=== PATIENT | male | born 1935 | race Caucasian/White ===

== ENCOUNTER 2017-10-05 17:09 | Inpatient (IN) | payer MEDICARE, OTHER ==
--- NOTE | 2017-10-05 17:48 | EDM.PDOC ---
<Kendell Gonzalez - Last Filed: 10/05/17 21:25> ED HPI GENERAL MEDICAL PROBLEM - General Chief Complaint: Lower Extremity Injury/Pain Stated Complaint: MEDICAL [facility] Time Seen by Provider: 10/05/17 17:45 - Related Data Allergies Allergy/AdvReac Type Severity Reaction Status Date / Time Sulfa (Sulfonamide Allergy Itching Verified 10/05/17 20:52 Antibiotics) Home Meds: Home Meds Aspirin 325 mg PO DAILY 10/05/17 [History] Cyanocobalamin (Vitamin B-12) [B-12] 1,000 mcg PO DAILY 10/05/17 [History] Dorzolamide HCl [Trusopt] 1 drop EYELF BID 10/05/17 [History] Ferrous Gluconate 324 mg PO DAILY 10/05/17 [History] Finasteride 5 mg PO DAILY 10/05/17 [History] Lovastatin 40 mg PO BEDTIME 10/05/17 [History] Saw [place] 1,000 mg PO BID 10/05/17 [History] Terazosin [Hytrin] 5 mg PO BEDTIME 10/05/17 [History] Timolol Maleate [Timoptic 0.5% Ophth Soln] 1 drop EYEBOTH ACBREAKFAST 10/05/17 [ History] amLODIPine Besylate [Amlodipine Besylate] 10 mg PO DAILY 10/05/17 [History] guaiFENesin [Expectorant] 200 mg PO ASDIRECTED 10/05/17 [History] Brimonidine [Alphagan P 0.15% Ophth Soln] 1 drop EYELF BID 10/06/17 [History] Latanoprost [Xalatan 0.005% Ophth Soln] 1 drop EYEBOTH BEDTIME 10/06/17 [History ] Propylene Glycol/Peg 400 [Systane Ultra 0.4-0.3% Eye Drp] 1 drop EYEBOTH TID PRN 10/06/17 [History] Acetaminophen/oxyCODONE [Percocet 325-5 MG] 1 - 2 tab PO Q4H PRN #40 tablet [Rx] Aspirin [Ecotrin] 325 mg PO DAILY #30 tab.ec 10/08/17 [Rx] Polyethylene Glycol 3350 [Miralax] 17 gm PO DAILY #30 powd.pack 10/08/17 [Rx] Course - Vital Signs Last Recorded V/S: Last Vital Signs Temp 37.3 C 10/08/17 10:00 Pulse 92 10/08/17 10:00 Resp 18 10/08/17 10:00 BP 151/69 H 10/08/17 10:00 Pulse Ox 94 L 10/08/17 10:00 - Orders/Labs/Meds Labs: Laboratory Tests 10/05/17 10/05/17 Range/Units 17:50 17:50 WBC 7.7 (4.5-11.0) K/uL RBC 4.61 (4.30-5.90) M/uL Hgb 13.4 (12.0-15.0) g/dL Hct 40.8 (40.0-54.0) % MCV 89 (80-98) fL MCH 29 (27-31) pg MCHC 33 (32-36) % Plt Count 224 (150-400) K/uL Neut % (Auto) 71 H (36-66) % Lymph % (Auto) 18 L (24-44) % [place] % (Auto) 9 H (2-6) % Eos % (Auto) 2 (2-4) % Baso % (Auto) 1 (0-1) % Sodium 138 L (140-148) mmol/L Potassium 3.9 (3.6-5.2) mmol/L Chloride 106 (100-108) mmol/L Carbon Dioxide 25 (21-32) mmol/L Anion Gap 10.9 (5.0-14.0) mmol/L BUN 23 H (7-18) mg/dL Creatinine 1.4 H (0.8-1.3) mg/dL Est Cr Clr Drug Dosing 39.36 mL/min Estimated GFR (MDRD) 49 L (>60) Glucose 123 H (74-106) mg/dL Calcium 8.6 (8.5-10.1) mg/dL Total Bilirubin 0.3 (0.2-1.0) mg/dL AST 19 (15-37) U/L ALT 19 (12-78) U/L Alkaline Phosphatase 68 (46-116) U/L Total Protein 6.7 (6.4-8.2) g/dL Albumin 3.4 (3.4-5.0) g/dL Globulin 3.3 (2.3-3.5) g/dL Albumin/Globulin Ratio 1.0 L (1.2-2.2) Meds: Medications Discontinued Medications Generic Name Dose Route Start Last Admin Trade Name [place] PRN Reason Stop Dose Admin Acetaminophen 650 mg 10/05/17 20:49 Tylenol PO Q4H PRN Pain (Mild 1-3)/fever Al Hydroxide/Mg Hydroxide 30 ml 10/06/17 13:37 Mag-Al Plus PO Q4H PRN Constipation Amlodipine Besylate 10 mg 10/06/17 09:00 10/08/17 08:13 Norvasc PO 10 mg DAILY ANANTH Administration Ampicillin Sodium/Sulbactam Sodium Confirm 10/06/17 13:20 Unasyn Administered 10/06/17 13:21 Dose 3 gm .ROUTE .STK-MED ONE Aspirin 325 mg 10/07/17 09:00 10/08/17 08:13 Ecotrin PO 325 mg DAILY ANANTH Administration Bisacodyl 10 mg 10/07/17 09:00 10/08/17 08:13 Dulcolax PO 10 mg DAILY [facility] Administration Brimonidine Tartrate 0 ml 10/06/17 21:00 10/08/17 08:11 Alphagan P 0.15% Ophth Soln EYELF Not Given BID [facility] Ropivacaine 49.25 ml/ 0 ml 10/06/17 14:00 10/06/17 13:17 Ketorolac Tromethamine 30 mg/ INJECT 10/06/17 14:01 100 ml Epinephrine HCl 0.5 mg/ ONETIME ONE Administration Clonidine HCl 80 mcg/ Sodium Chloride 48.45 ml Dexamethasone Confirm 10/06/17 13:11 Dexamethasone Administered 10/06/17 13:12 Dose 4 mg .ROUTE .STK-MED ONE Diphenhydramine HCl 25 mg 10/06/17 13:37 Benadryl IVPUSH Q4H PRN Itching Docusate Sodium 100 mg 10/06/17 21:00 10/08/17 08:13 Colace PO 100 mg BID [facility] Administration Dorzolamide HCl 0 ml 10/05/17 21:00 10/08/17 08:12 Trusopt 2% Ophth Soln EYELF Not Given BID [facility] Fentanyl Confirm 10/06/17 11:33 Sublimaze Administered 10/06/17 11:34 Dose 100 mcg .ROUTE .STK-MED ONE Ferrous Sulfate 325 mg 02/21/18 09:00 10/08/17 08:13 Ferrous Sulfate PO 325 mg DAILY ANANTH Administration Finasteride 5 mg 10/06/17 09:00 Proscar PO DAILY ANANTH Finasteride 5 mg 10/05/17 23:00 10/05/17 23:05 Proscar PO 10/05/17 23:01 5 mg ONETIME ONE Administration Finasteride 5 mg 10/06/17 21:00 10/07/17 20:13 Proscar PO 5 mg BEDTIME ANANTH Administration Hydromorphone HCl 0.5 mg 10/05/17 18:02 10/05/17 18:06 Dilaudid IVPUSH 10/05/17 18:03 0.5 mg ONETIME ONE Administration Hydromorphone HCl Confirm 10/05/17 18:03 10/05/17 18:06 Dilaudid Administered 10/05/17 18:04 Not Given Dose 0.5 mg .ROUTE .STK-MED ONE Hydromorphone HCl 0.5 mg 10/05/17 20:49 10/06/17 05:50 Dilaudid IVPUSH 0.5 mg Q2H PRN Administration Pain Hydromorphone HCl 1 mg 10/06/17 07:29 10/06/17 10:04 Dilaudid IVPUSH 1 mg Q1H PRN Administration Pain Sodium Chloride 1,000 mls @ 125 mls/hr 10/05/17 20:49 10/06/17 23:46 Normal Saline IV 125 mls/hr ASDIRECTED ANANTH Administration Clindamycin Phosphate 600 mg/ 54 mls @ 100 mls/hr 10/06/17 10:00 10/06/17 11: 53 Sodium Chloride IV 10/07/17 02:33 100 mls/hr Q8H ANANTH Administration Lactated Ringer's Confirm 10/06/17 13:08 Ringers, Lactated Administered 10/06/17 13:09 Dose 1,000 mls @ as directed .ROUTE .STK-MED ONE Acetaminophen 1,000 mg/ Premix 100 mls @ 400 mls/hr 10/06/17 14:00 10/06/17 14:08 IV 10/06/17 14:14 400 mls/hr NOW ONE Administration Clindamycin Phosphate 600 mg/ 54 mls @ 100 mls/hr 10/06/17 18:00 10/07/17 05: 30 Sodium Chloride IV 10/07/17 06:33 100 mls/hr Q6H ANANTH Administration Ketorolac Tromethamine 15 mg 10/06/17 13:37 10/06/17 20:04 Toradol IVPUSH 10/11/17 13:37 15 mg Q8H PRN Administration Pain Latanoprost 0 ml 10/06/17 21:00 10/07/17 20:03 Xalatan 0.005% Ophth Soln EYEBOTH 1 drop BEDTIME ANANTH Administration Lidocaine HCl Confirm 10/05/17 19:06 10/05/17 19:22 Xylocaine 2% Jelly Administered 10/05/17 19:07 Not Given Dose 10 ml .ROUTE .STK-MED ONE Lidocaine HCl 10 ml 10/05/17 19:22 10/05/17 19:23 Xylocaine 2% Jelly MUCMEM 10/05/17 19:23 10 ml ONETIME ONE Administration Lovastatin 40 mg 10/05/17 21:00 10/07/17 20:11 Mevacor PO 40 mg BEDTIME ANANTH Administration Magnesium Hydroxide 30 ml 10/05/17 20:49 Milk Of Magnesia PO Q12H PRN Constipation Magnesium Hydroxide 30 ml 10/06/17 21:00 10/08/17 08:13 Milk Of Magnesia PO 30 ml BID ANANTH Administration Midazolam HCl Confirm 10/06/17 11:33 Versed 1 Mg/Ml Administered 10/06/17 11:34 Dose 2 mg .ROUTE .STK-MED ONE Morphine Sulfate 2 mg 10/06/17 13:37 Morphine IVPUSH Q2H PRN Pain Naloxone HCl 0.1 mg 10/06/17 13:37 Narcan IVPUSH ONETIME PRN Oversedation Ondansetron HCl 4 mg 10/05/17 20:49 Zofran IV Q4H PRN Nausea/Vomiting Ondansetron HCl 8 mg 10/06/17 13:37 Zofran IVPUSH Q4H PRN Nausea/Vomiting Oxycodone HCl 5 mg 10/05/17 20:49 Oxycodone PO Q4H PRN Pain (moderate 4-6) Oxycodone HCl 10 mg 10/06/17 13:37 10/07/17 11:11 Oxycodone PO 10/07/17 13:37 10 mg Q4H PRN Administration Pain Oxycodone/Acetaminophen 2 tab 10/07/17 13:37 10/08/17 11:14 Percocet 325-5 Mg PO 2 tab Q4H PRN Administration Pain Polyethylene Glycol 17 gm 10/05/17 20:49 Miralax PO DAILY PRN Constipation Propofol Confirm 10/06/17 11:33 Diprivan 20 Ml Administered 10/06/17 11:34 Dose 200 mg .ROUTE .STK-MED ONE Senna 8.6 mg 10/06/17 21:00 10/08/17 08:13 Senna PO 8.6 mg BID ANANTH Administration Senna/Docusate Sodium 1 tab 10/05/17 20:49 Senna Plus PO BID PRN Constipation Sodium Chloride 10 ml 10/05/17 20:49 Saline Flush FLUSH ASDIRECTED PRN Keep Vein Open Sodium Chloride 10 ml 10/07/17 09:00 Saline Flush FLUSH DAILY ANANTH Terazosin HCl 5 mg 10/05/17 21:00 10/07/17 20:09 Hytrin PO 5 mg BEDTIME ANANTH Administration Timolol Maleate 0 ml 10/06/17 07:30 10/08/17 07:06 Timoptic 0.5% Ophth Soln EYEBOTH 1 drop ACBREAKFAST ANANTH Administration Tramadol HCl 100 mg 10/06/17 13:37 10/07/17 06:01 Ultram PO 50 mg Q6H PRN Administration Pain Zolpidem Tartrate 5 mg 10/06/17 13:37 Ambien PO BEDTIME PRN Sleep - Re-Assessments/Exams Free Text/Narrative Re-Assessment/Exam: 10/05/17 18:47 Transferred to my care from Dr. Cedillo Pending results of the x-rays X-ray right hip shows fracture of the neck of the femur X-ray of the elbow left is negative X-ray of the chest is negative, all by my interpretation Consult orthopedics Dr. Mackenzie Consult hospitalist for admission Departure - Departure Time of Disposition: 18:49 Disposition: Admitted As Inpatient 66 Condition: Good Clinical Impression: Fracture of femoral neck, right, closed Qualifiers: Encounter type: initial encounter Qualified Code(s): S72.001A - Fracture of unspecified part of neck of right femur, initial encounter for closed fracture - Discharge Information <Sherly Cedillo - Last Filed: 10/09/17 09:38> ED HPI GENERAL MEDICAL PROBLEM - General Source of Information: Reports: Patient History Limitations: Reports: No Limitations - History of Present Illness INITIAL COMMENTS - FREE TEXT/NARRATIVE: pt was chasing squirels on the deck. He lost his balsnce and landed on his rt hip. He also scraped his eleboW, worse on the left/ Onset: Today, Sudden Duration: Hour(s): Location: Reports: Upper Extremity, Left, Upper Extremity, Right, Lower Extremity, Right Associated Symptoms: Reports: No Other Symptoms Right Hip Pain Score (Numeric/FACES): 6 Past Medical History HEENT History: Reports: Cataract, Glaucoma Cardiovascular History: Reports: High Cholesterol, Hypertension Genitourinary History: Reports: Prostate Disorder - Past Surgical History HEENT Surgical History: Reports: Cataract Surgery Social & Family History - Tobacco Use Smoking Status *Q: Never Smoker - Caffeine Use Caffeine Use: Reports: Coffee - Recreational Drug Use Recreational Drug Use: No Review of Systems - Review of Systems Review Of Systems: See Below Constitutional: Reports: No Symptoms Eyes: Reports: No Symptoms Ears: Reports: No Symptoms Nose: Reports: No Symptoms Mouth/Throat: Reports: No Symptoms Respiratory: Reports: No Symptoms Cardiovascular: Reports: No Symptoms GI/Abdominal: Reports: No Symptoms Musculoskeletal: Reports: Other (pain in left hip and pelvis. He has scaped his elebows. ) ED EXAM, GENERAL - Physical Exam Exam: See Below Free Text/Narrative:: pt arrived after a fall on the deck. He has pain in his rt hip. He scraped both elebows. He has some external rotation of the rt leg. Exam Limited By: No Limitations General Appearance: Alert, Moderate Distress, Other (pupils are equal and reactive.) Ears: Normal TMs Nose: Normal Inspection Throat/Mouth: Normal Inspection Head: Atraumatic Neck: Normal Inspection Respiratory/Chest: No Respiratory Distress Cardiovascular: Regular Rate, Rhythm GI/Abdominal: Soft, Non-Tender (Male) Exam: Normal Inspection Rectal (Males) Exam: Deferred Back Exam: Normal Inspection Extremities: Other (left leg is externally rotated and shortened. He has scraped both of his elebows. He was not knocked out. ) Neurological: Alert, Oriented, Normal Cognition Psychiatric: Normal Affect Course - Orders/Labs/Meds Labs: Laboratory Tests 10/05/17 10/05/17 Range/Units 17:50 17:50 WBC 7.7 (4.5-11.0) K/uL RBC 4.61 (4.30-5.90) M/uL Hgb 13.4 (12.0-15.0) g/dL Hct 40.8 (40.0-54.0) % MCV 89 (80-98) fL MCH 29 (27-31) pg MCHC 33 (32-36) % Plt Count 224 (150-400) K/uL Neut % (Auto) 71 H (36-66) % Lymph % (Auto) 18 L (24-44) % [place] % (Auto) 9 H (2-6) % Eos % (Auto) 2 (2-4) % Baso % (Auto) 1 (0-1) % Sodium 138 L (140-148) mmol/L Potassium 3.9 (3.6-5.2) mmol/L Chloride 106 (100-108) mmol/L Carbon Dioxide 25 (21-32) mmol/L Anion Gap 10.9 (5.0-14.0) mmol/L BUN 23 H (7-18) mg/dL Creatinine 1.4 H (0.8-1.3) mg/dL Est Cr Clr Drug Dosing 39.36 mL/min Estimated GFR (MDRD) 49 L (>60) Glucose 123 H (74-106) mg/dL Calcium 8.6 (8.5-10.1) mg/dL Total Bilirubin 0.3 (0.2-1.0) mg/dL AST 19 (15-37) U/L ALT 19 (12-78) U/L Alkaline Phosphatase 68 (46-116) U/L Total Protein 6.7 (6.4-8.2) g/dL Albumin 3.4 (3.4-5.0) g/dL Globulin 3.3 (2.3-3.5) g/dL Albumin/Globulin Ratio 1.0 L (1.2-2.2) Meds: Medications Discontinued Medications Generic Name Dose Route Start Last Admin Trade Name Freq PRN Reason Stop Dose Admin Acetaminophen 650 mg 10/05/17 20:49 Tylenol PO Q4H PRN Pain (Mild 1-3)/fever Al Hydroxide/Mg Hydroxide 30 ml 02/21/18 13:37 Mag-Al Plus PO Q4H PRN Constipation Amlodipine Besylate 10 mg 10/06/17 09:00 10/08/17 08:13 Norvasc PO 10 mg DAILY ANANTH Administration Ampicillin Sodium/Sulbactam Sodium Confirm 10/06/17 13:20 Unasyn Administered 10/06/17 13:21 Dose 3 gm .ROUTE .STK-MED ONE Aspirin 325 mg 10/07/17 09:00 10/08/17 08:13 Ecotrin PO 325 mg DAILY ANANTH Administration Bisacodyl 10 mg 10/07/17 09:00 10/08/17 08:13 Dulcolax PO 10 mg DAILY [facility] Administration Brimonidine Tartrate 0 ml 10/06/17 21:00 10/08/17 08:11 Alphagan P 0.15% Ophth Soln EYELF Not Given BID [facility] Ropivacaine 49.25 ml/ 0 ml 10/06/17 14:00 10/06/17 13:17 Ketorolac Tromethamine 30 mg/ INJECT 10/06/17 14:01 100 ml Epinephrine HCl 0.5 mg/ ONETIME ONE Administration Clonidine HCl 80 mcg/ Sodium Chloride 48.45 ml Dexamethasone Confirm 10/06/17 13:11 Dexamethasone Administered 10/06/17 13:12 Dose 4 mg .ROUTE .STK-MED ONE Diphenhydramine HCl 25 mg 10/06/17 13:37 Benadryl IVPUSH Q4H PRN Itching Docusate Sodium 100 mg 10/06/17 21:00 10/08/17 08:13 Colace PO 100 mg BID [facility] Administration Dorzolamide HCl 0 ml 10/05/17 21:00 10/08/17 08:12 Trusopt 2% Ophth Soln EYELF Not Given BID [facility] Fentanyl Confirm 10/06/17 11:33 Sublimaze Administered 10/06/17 11:34 Dose 100 mcg .ROUTE .STK-MED ONE Ferrous Sulfate 325 mg 10/06/17 09:00 10/08/17 08:13 Ferrous Sulfate PO 325 mg DAILY [facility] Administration Finasteride 5 mg 10/06/17 09:00 Proscar PO DAILY [facility] Finasteride 5 mg 10/05/17 23:00 10/05/17 23:05 Proscar PO 10/05/17 23:01 5 mg ONETIME ONE Administration Finasteride 5 mg 10/06/17 21:00 10/07/17 20:13 Proscar PO 5 mg BEDTIME ANANTH Administration Hydromorphone HCl 0.5 mg 10/05/17 18:02 10/05/17 18:06 Dilaudid IVPUSH 10/05/17 18:03 0.5 mg ONETIME ONE Administration Hydromorphone HCl Confirm 10/05/17 18:03 10/05/17 18:06 Dilaudid Administered 10/05/17 18:04 Not Given Dose 0.5 mg .ROUTE .STK-MED ONE Hydromorphone HCl 0.5 mg 10/05/17 20:49 10/06/17 05:50 Dilaudid IVPUSH 0.5 mg Q2H PRN Administration Pain Hydromorphone HCl 1 mg 10/06/17 07:29 10/06/17 10:04 Dilaudid IVPUSH 1 mg Q1H PRN Administration Pain Sodium Chloride 1,000 mls @ 125 mls/hr 10/05/17 20:49 10/06/17 23:46 Normal Saline IV 125 mls/hr ASDIRECTED ANANTH Administration Clindamycin Phosphate 600 mg/ 54 mls @ 100 mls/hr 10/06/17 10:00 10/06/17 11: 53 Sodium Chloride IV 10/07/17 02:33 100 mls/hr Q8H ANANTH Administration Lactated Ringer's Confirm 10/06/17 13:08 Ringers, Lactated Administered 10/06/17 13:09 Dose 1,000 mls @ as directed .ROUTE .STK-MED ONE Acetaminophen 1,000 mg/ Premix 100 mls @ 400 mls/hr 10/06/17 14:00 10/06/17 14:08 IV 10/06/17 14:14 400 mls/hr NOW ONE Administration Clindamycin Phosphate 600 mg/ 54 mls @ 100 mls/hr 10/06/17 18:00 10/07/17 05: 30 Sodium Chloride IV 10/07/17 06:33 100 mls/hr Q6H ANANTH Administration Ketorolac Tromethamine 15 mg 10/06/17 13:37 10/06/17 20:04 Toradol IVPUSH 10/11/17 13:37 15 mg Q8H PRN Administration Pain Latanoprost 0 ml 10/06/17 21:00 10/07/17 20:03 Xalatan 0.005% Ophth Soln EYEBOTH 1 drop BEDTIME ANANTH Administration Lidocaine HCl Confirm 10/05/17 19:06 10/05/17 19:22 Xylocaine 2% Jelly Administered 10/05/17 19:07 Not Given Dose 10 ml .ROUTE .STK-MED ONE Lidocaine HCl 10 ml 10/05/17 19:22 10/05/17 19:23 Xylocaine 2% Jelly MUCMEM 10/05/17 19:23 10 ml ONETIME ONE Administration Lovastatin 40 mg 10/05/17 21:00 10/07/17 20:11 Mevacor PO 40 mg BEDTIME ANANTH Administration Magnesium Hydroxide 30 ml 10/05/17 20:49 Milk Of Magnesia PO Q12H PRN Constipation Magnesium Hydroxide 30 ml 10/06/17 21:00 10/08/17 08:13 Milk Of Magnesia PO 30 ml BID ANANTH Administration Midazolam HCl Confirm 10/06/17 11:33 Versed 1 Mg/Ml Administered 10/06/17 11:34 Dose 2 mg .ROUTE .STK-MED ONE Morphine Sulfate 2 mg 10/06/17 13:37 Morphine IVPUSH Q2H PRN Pain Naloxone HCl 0.1 mg 10/06/17 13:37 Narcan IVPUSH ONETIME PRN Oversedation Ondansetron HCl 4 mg 10/05/17 20:49 Zofran IV Q4H PRN Nausea/Vomiting Ondansetron HCl 8 mg 10/06/17 13:37 Zofran IVPUSH Q4H PRN Nausea/Vomiting Oxycodone HCl 5 mg 10/05/17 20:49 Oxycodone PO Q4H PRN Pain (moderate 4-6) Oxycodone HCl 10 mg 10/06/17 13:37 10/07/17 11:11 Oxycodone PO 10/07/17 13:37 10 mg Q4H PRN Administration Pain Oxycodone/Acetaminophen 2 tab 10/07/17 13:37 10/08/17 11:14 Percocet 325-5 Mg PO 2 tab Q4H PRN Administration Pain Polyethylene Glycol 17 gm 10/05/17 20:49 Miralax PO DAILY PRN Constipation Propofol Confirm 10/06/17 11:33 Diprivan 20 Ml Administered 10/06/17 11:34 Dose 200 mg .ROUTE .STK-MED ONE Senna 8.6 mg 10/06/17 21:00 10/08/17 08:13 Senna PO 8.6 mg BID ANANTH Administration Senna/Docusate Sodium 1 tab 10/05/17 20:49 Senna Plus PO BID PRN Constipation Sodium Chloride 10 ml 10/05/17 20:49 Saline Flush FLUSH ASDIRECTED PRN Keep Vein Open Sodium Chloride 10 ml 10/07/17 09:00 Saline Flush FLUSH DAILY ANANTH Terazosin HCl 5 mg 10/05/17 21:00 10/07/17 20:09 Hytrin PO 5 mg BEDTIME ANANTH Administration Timolol Maleate 0 ml 10/06/17 07:30 10/08/17 07:06 Timoptic 0.5% Ophth Soln EYEBOTH 1 drop ACBREAKFAST ANANTH Administration Tramadol HCl 100 mg 10/06/17 13:37 10/07/17 06:01 Ultram PO 50 mg Q6H PRN Administration Pain Zolpidem Tartrate 5 mg 10/06/17 13:37 Ambien PO BEDTIME PRN Sleep
[2017-10-05] MEDS ORDERED: HYDROmorphone 0.5 MG/0.5 ML Syringe IVPUSH ONE (18:02)
[2017-10-05] MEDS ORDERED: HYDROmorphone 0.5 MG/0.5 ML Syringe ONE (18:03)
[2017-10-05] MEDS ORDERED: Lidocaine 2% Jelly 10 ML Urojet ONE (19:06)
[2017-10-05] MEDS ORDERED: Lidocaine 2% Jelly 10 ML Urojet MUCMEM ONE (19:22)
--- NOTE | 2017-10-05 20:43 | PCM.HP ---
H&P History of Present Illness - General Date of Service: 10/05/17 Admit Problem/Dx: Admission Diagnosis/Problem Admission Diagnosis/Problem Fracture of hip Source of Information: Patient, Family, Provider, RN Notes Reviewed History Limitations: Reports: No Limitations - History of Present Illness Initial Comments - Free Text/Narative: Mr. Mathur is an 82-year-old gentleman who is admitted through the emergency department for further management of a right hip fracture. He slipped and fell on his deck today and noted immediate onset of pain in his right hip. On evaluation in the emergency department x-ray documents fracture of the right hip. He is otherwise fairly healthy, denies significant cardiac or respiratory disease. He's had no recent symptoms of chest pain or pressure, shortness of breath or neurologic symptoms. He himself has never had general anesthesia and denies any family history of adverse reaction to general anesthetic. He has had no personal history of deep vein thrombosis or pulmonary embolism. Right Hip Pain Score (Numeric/FACES): 6 - Related Data Allergies/Adverse Reactions: Allergies Allergy/AdvReac Type Severity Reaction Status Date / Time Sulfa (Sulfonamide Allergy Itching Verified 10/05/17 17:16 Antibiotics) Home Medications: Home Meds Aspirin 325 mg PO DAILY 10/05/17 [History] Cyanocobalamin (Vitamin B-12) [B-12] 1,000 mcg PO DAILY 10/05/17 [History] Dorzolamide HCl [Trusopt] 1 drop EYELF BID 10/05/17 [History] Ferrous Gluconate 324 mg PO DAILY 10/05/17 [History] Finasteride 5 mg PO DAILY 10/05/17 [History] Lovastatin 40 mg PO BEDTIME 10/05/17 [History] Saw [place] 1,000 mg PO BID 10/05/17 [History] Terazosin [Hytrin] 5 mg PO BEDTIME 10/05/17 [History] Timolol Maleate [Timoptic 0.5% Ophth Soln] 1 drop EYEBOTH ACBREAKFAST 10/05/17 [ History] amLODIPine Besylate [Amlodipine Besylate] 10 mg PO DAILY 10/05/17 [History] guaiFENesin [Expectorant] 200 mg PO ASDIRECTED 10/05/17 [History] Past Medical History HEENT History: Reports: Cataract, Glaucoma Cardiovascular History: Reports: High Cholesterol, Hypertension Genitourinary History: Reports: Prostate Disorder - Past Surgical History HEENT Surgical History: Reports: Cataract Surgery Social & Family History - Tobacco Use Smoking Status *Q: Never Smoker - Caffeine Use Caffeine Use: Reports: Coffee - Recreational Drug Use Recreational Drug Use: No H&P Review of Systems - Review of Systems: Review Of Systems: See Below General: Denies: Fever, Chills, Weakness, Diaphoresis, Decreased Appetite, Weight Loss HEENT: Reports: No Symptoms Pulmonary: Reports: No Symptoms Cardiovascular: Reports: No Symptoms Gastrointestinal: Reports: No Symptoms Genitourinary: Reports: No Symptoms Musculoskeletal: Reports: Joint Pain (Right hip) Skin: Reports: No Symptoms Psychiatric: Reports: No Symptoms Neurological: Reports: No Symptoms Hematologic/Lymphatic: Reports: No Symptoms Immunologic: Reports: No Symptoms Exam - Exam Exam: See Below - Vital Signs Vital Signs: Last Vital Signs Temp 97 F 10/05/17 17:17 Pulse 85 10/05/17 17:17 Resp 16 10/05/17 17:17 BP 143/87 H 10/05/17 17:17 Pulse Ox 96 10/05/17 17:17 Weight: 172 lb - Exam Quality Assessment: DVT Prophylaxis General: Alert, Oriented, Cooperative, Moderate Distress HEENT: Conjunctiva Clear, Hearing Intact, Mucosa Moist & [place], Normal Nasal Septum, Posterior Pharynx Clear, Pupils Equal Neck: Supple, Trachea Midline, +2 Carotid Pulse wo Bruit Lungs: Clear to Auscultation, Normal Respiratory Effort Cardiovascular: Regular Rate, Regular Rhythm, Normal S1, Normal S2. No: Systolic Murmur, Diastolic Murmur GI/Abdominal Exam: Soft, Non-Tender, No Organomegaly, No Distention Extremities: Non-Tender, No Pedal Edema, Other (Pain right hip) Skin: Warm, Dry, Intact Neurological: Cranial Nerves Intact, Strength Equal Bilateral, Normal Speech, Normal Tone, Sensation Intact. No: Focal Deficit Neuro Extensive - Mental Status: Alert, Oriented x3, Normal Mood/Affect, Normal Cognition, Memory Intact - Patient Data Result Diagrams: 10/05/17 17:50 10/05/17 17:50 *Q Meaningful Use (ADM) - VTE *Q VTE Criteria *Q: - VTE Risk Assess *Q Each Risk Factor Represents 1 Point: Obesity ( BMI > 25 kg/m2) Total Score 1 Point Risk Factors: 1 Each Risk Factor Represents 2 Points: None Total Score 2 Point Risk Factors: 0 Each Risk Factor Represents 3 Points: Age 75 Years or Greater Total Score 3 Point Risk Factors: 3 Each Risk Factor Represents 5 Points: Hip, Pelvis or Leg Fracture, Less than 1 month Total Score 5 Point Risk Factors: 5 Venous Thromboembolism Risk Factor Score *Q: 9 - Stroke *Q Stroke Criteria *Q: - AMI *Q AMI Criteria *Q: Problem List Initiated/Reviewed/Updated: Yes Orders Last 24hrs: Active Orders 24 hr Category Date Time Status Resuscitation Status Routine Resus Stat 10/05/17 19:58 Ordered Assessment/Plan Comment:: ASSESSMENT AND PLAN RIGHT HIP FRACTURE-occurred after he fell on his deck earlier today. -IV fluids for hydration -Nothing by mouth after midnight -Pain medication as needed -Consult Dr. Anam Goel for orthopedic evaluation in a.m. HYPERTENSION -Continue outpatient medical regimen BPH -Continue outpatient medications MAINTENANCE ISSUES -DVT prophylaxis; SCUDs -GI prophylaxis; not indicated -Brasher catheter; not indicated -Nutrition; regular diet, nothing by mouth after midnight -Nicotine dependence; not required CODE STATUS-full code ADMISSION STATUS-patient will be admitted to inpatient status, expect at least a 2 night hospital stay for evaluation and management of problems as outlined above. At the time of this admission I do not reasonably expected evaluation and management of this problem will require more than a 96 hour hospital stay. DISPOSITION-anticipate discharge to home after the hospital stay. PRIMARY CARE PROVIDER-he receives his health care through the [facility]
[2017-10-05] MEDS ORDERED: Magnesium Hydroxide 400 MG/5 ML Susp 30 ML Cup PO PRN (20:49)
[2017-10-05] MEDS ORDERED: Sodium Chloride 0.9% 10 ML Syringe FLUSH PRN (20:49)
[2017-10-05] MEDS ORDERED: oxyCODONE 5 MG Tab PO PRN (20:49)
[2017-10-05] MEDS ORDERED: Ondansetron 4 MG/2 ML SDV IV PRN (20:49)
[2017-10-05] MEDS ORDERED: Polyethylene Glycol 3350 Powder 17 GM Packet PO PRN (20:49)
[2017-10-05] MEDS ORDERED: Acetaminophen 325 MG Tab PO PRN (20:49)
[2017-10-05] MEDS: HYDROmorphone 0.5 MG/0.5 ML Syringe IVPUSH PRN ×2 (20:59→23:06)
[2017-10-05] MEDS: Sodium Chloride 0.9% 1,000 ML IV SCH (20:59)
[2017-10-05] MEDS: DORZOLAMIDE 2% EYELF SCH (22:04)
[2017-10-05] MEDS: Terazosin 5 MG Cap PO SCH (22:29)
[2017-10-05] MEDS ORDERED: Finasteride 5 MG Tab PO ONE (23:00)
[2017-10-06] MEDS: HYDROmorphone 0.5 MG/0.5 ML Syringe IVPUSH PRN ×2 (02:37→05:50)
[2017-10-06] MEDS: Sodium Chloride 0.9% 1,000 ML IV SCH ×2 (06:03→23:46)
[2017-10-06] MEDS: HYDROmorphone 1 MG/ML Syringe IVPUSH PRN ×2 (07:40→10:04)
[2017-10-06] MEDS: TIMOLOL MALEATE 0.5% EYEBOTH SCH (08:23)
[2017-10-06] MEDS ORDERED: Finasteride 5 MG Tab PO SCH (09:00)
--- NOTE | 2017-10-06 09:05 | CR ---
Chest 1V Frontal FINDINGS: There is elevation of the right hemidiaphragm. The heart and vascular structures are normal in appearance. No infiltrates or effusions are demonstrated. The skeletal structures are unremarkabl e. IMPRESSION: 1. No acute findings.
--- NOTE | 2017-10-06 09:06 | CR ---
Elbow 2V Lt HISTORY: Trauma FINDINGS: There is normal alignment. There is no evidence of fracture. No significant degenerative fi ndings are demonstrated. There is no joint effusion. The soft tissues appear unremarkable. IMPRESSION: Negative exam of the elbow.
--- NOTE | 2017-10-06 09:07 | CR ---
Pelvis right hip There is a displaced fracture through the midportion right femoral neck. The visualized right pelvis demonstrates no additional fractures. Impression: 1. Displaced femoral neck fracture.
--- NOTE | 2017-10-06 10:01 | PCM.PN ---
- General Info Date of Service: 10/06/17 Subjective Update: Mr. Mathur has remained stable since admission last night with a right hip fracture. Vital signs have remained within the desired range and he has been afebrile, pain control has been adequate. Plan is to proceed with surgical repair the fracture later this morning. - Review of Systems General: Denies: Fever, Chills Pulmonary: Reports: No Symptoms Cardiovascular: Reports: No Symptoms Gastrointestinal: Reports: No Symptoms Genitourinary: Reports: No Symptoms Musculoskeletal: Reports: Joint Pain (Right hip) - Patient Data Vitals - Most Recent: Last Vital Signs Temp 98.6 F 10/06/17 07:18 Pulse 100 10/06/17 07:18 Resp 16 10/06/17 07:18 BP 162/81 H 10/06/17 07:18 Pulse Ox 92 L 10/06/17 07:18 Weight - Most Recent: 194 lb 6.387 oz I&O - Last 24 Hours: Intake & Output 10/05/17 10/06/17 10/06/17 22:59 06:59 14:59 Intake Total 1211 Output Total 425 Balance 786 Lab Results Last 24 Hours: Laboratory Results - last 24 hr 10/05/17 10/06/17 10/06/17 Range/Units 22:01 05:11 05:11 WBC 10.6 (4.5-11.0) K/uL RBC 4.49 (4.30-5.90) M/uL Hgb 13.2 (12.0-15.0) g/dL Hct 40.0 (40.0-54.0) % MCV 89 (80-98) fL MCH 29 (27-31) pg MCHC 33 (32-36) % Plt Count 219 (150-400) K/uL Neut % (Auto) 84 H (36-66) % Lymph % (Auto) 8 L (24-44) % [place] % (Auto) 7 H (2-6) % Eos % (Auto) 0 L (2-4) % Baso % (Auto) 0 (0-1) % Sodium 140 (140-148) mmol/L Potassium 4.1 (3.6-5.2) mmol/L Chloride 108 (100-108) mmol/L Carbon Dioxide 22 (21-32) mmol/L Anion Gap 9.8 (5.0-14.0) mmol/L BUN 23 H (7-18) mg/dL Creatinine 1.3 (0.8-1.3) mg/dL Est Cr Clr Drug Dosing 42.38 mL/min Estimated GFR (MDRD) 53 L (>60) Glucose 129 H (74-106) mg/dL Calcium 8.4 L (8.5-10.1) mg/dL Urine Color Yellow Urine Appearance Slightly cloudy Urine pH 5.0 (4.5-8.0) Ur Specific [place] 1.020 (1.008-1.030) Urine Protein Negative (NEGATIVE) mg/dL Urine Glucose (UA) Normal (NEGATIVE) mg/dL Urine Ketones 15 H (NEGATIVE) mg/dL Urine Occult Blood Negative (NEGATIVE) Urine Nitrite Negative (NEGAITVE) Urine Bilirubin Small (NEGATIVE) Urine Urobilinogen Normal (NORMAL) mg/dL Ur Leukocyte Esterase Negative (NEGATIVE) Urine RBC 0-5 (0-5) Urine WBC 0-5 (0-5) Ur Epithelial Cells Rare Amorphous Sediment Moderate Urine Bacteria Not seen Urine Mucus Moderate Med Orders - Current: Current Medications Acetaminophen (Tylenol) 650 mg PO Q4H PRN PRN Reason: Pain (Mild 1-3)/fever Amlodipine Besylate (Norvasc) 10 mg PO DAILY [facility] Dorzolamide HCl (Trusopt 2% Ophth Soln) 0 ml EYELF BID [facility] Last Admin: 10/05/17 22:04 Dose: Not Given Ferrous Sulfate (Ferrous Sulfate) 325 mg PO DAILY [facility] Finasteride (Proscar) 5 mg PO BEDTIME [facility] Hydromorphone HCl (Dilaudid) 1 mg IVPUSH Q1H PRN PRN Reason: Pain Last Admin: 10/06/17 07:40 Dose: 1 mg Sodium Chloride (Normal Saline) 1,000 mls @ 125 mls/hr IV ASDIRECTED [facility] Last Admin: 10/06/17 06:03 Dose: 125 mls/hr Clindamycin Phosphate 600 mg/ (Sodium Chloride) 54 mls @ 100 mls/hr IV Q8H [facility] Stop: 10/07/17 02:33 Lovastatin (Mevacor) 40 mg PO BEDTIME [facility] Last Admin: 10/05/17 22:28 Dose: 40 mg Magnesium Hydroxide (Milk Of Magnesia) 30 ml PO Q12H PRN PRN Reason: Constipation Ondansetron HCl (Zofran) 4 mg IV Q4H PRN PRN Reason: Nausea/Vomiting Oxycodone HCl (Oxycodone) 5 mg PO Q4H PRN PRN Reason: Pain (moderate 4-6) Polyethylene Glycol (Miralax) 17 gm PO DAILY PRN PRN Reason: Constipation Senna/Docusate Sodium (Senna Plus) 1 tab PO BID PRN PRN Reason: Constipation Sodium Chloride (Saline Flush) 10 ml FLUSH ASDIRECTED PRN PRN Reason: Keep Vein Open Terazosin HCl (Hytrin) 5 mg PO BEDTIME [facility] Last Admin: 10/05/17 22:29 Dose: 5 mg Timolol Maleate (Timoptic 0.5% Ophth Soln) 0 ml EYEBOTH ACBREAKFAST [facility] Last Admin: 10/06/17 08:23 Dose: 1 drop Discontinued Medications Finasteride (Proscar) 5 mg PO DAILY [facility] Finasteride (Proscar) 5 mg PO ONETIME ONE Stop: 10/05/17 23:01 Last Admin: 10/05/17 23:05 Dose: 5 mg Hydromorphone HCl (Dilaudid) 0.5 mg IVPUSH ONETIME ONE Stop: 10/05/17 18:03 Last Admin: 10/05/17 18:06 Dose: 0.5 mg Hydromorphone HCl (Dilaudid) Confirm Administered Dose 0.5 mg .ROUTE .STK-MED ONE Stop: 10/05/17 18:04 Last Admin: 10/05/17 18:06 Dose: Not Given Hydromorphone HCl (Dilaudid) 0.5 mg IVPUSH Q2H PRN PRN Reason: Pain Last Admin: 10/06/17 05:50 Dose: 0.5 mg Lidocaine HCl (Xylocaine 2% Jelly) Confirm Administered Dose 10 ml .ROUTE .STK- MED ONE Stop: 10/05/17 19:07 Last Admin: 10/05/17 19:22 Dose: Not Given Lidocaine HCl (Xylocaine 2% Jelly) 10 ml MUCMEM ONETIME ONE Stop: 10/05/17 19:23 Last Admin: 10/05/17 19:23 Dose: 10 ml - Exam Quality Assessment: DVT Prophylaxis General: Alert, Oriented, Cooperative, Mild Distress Lungs: Clear to Auscultation, Normal Respiratory Effort Cardiovascular: Regular Rate, Regular Rhythm, No Murmurs GI/Abdominal Exam: Soft, Non-Tender, No Organomegaly, No Distention Extremities: No Pedal Edema, Normal Capillary Refill Skin: Warm, Dry, Intact - Problem List Review Problem List Initiated/Reviewed/Updated: Yes - My Orders Last 24 Hours: My Active Orders 10/05/17 19:58 Resuscitation Status Routine 10/05/17 20:49 Patient Status [ADT] Routine Ambulate [RC] QID Bedrest Bedside Commode [RC] ASDIRECTED Height and Weight [RC] DAILY Intake and Output [RC] QSHIFT Notify Provider Consults [RC] ASDIRECTED Notify Provider Vital Signs [RC] ASDIRECTED Oxygen Therapy [RC] PRN Peripheral IV Care [RC] Q12H Up With Assistance [RC] ASDIRECTED Up to Chair [RC] QID VTE/DVT Education [RC] Per Unit Routine Vital Signs [RC] Q4H Consult to Physician [CONS] Routine Acetaminophen [Tylenol] 650 mg PO Q4H PRN Docusate Sodium/Sennosides [Senna Plus] 1 tab PO BID PRN Magnesium Hydroxide [Milk of Magnesia] 30 ml PO Q12H PRN Ondansetron [Zofran] 4 mg IV Q4H PRN Polyethylene Glycol 3350 [MiraLAX] 17 gm PO DAILY PRN Sodium Chloride 0.9% [Normal Saline] 1,000 ml IV ASDIRECTED Sodium Chloride 0.9% [Saline Flush] 10 ml FLUSH ASDIRECTED PRN oxyCODONE 5 mg PO Q4H PRN Peripheral IV Insertion Adult [OM.PC] Routine Sequential Compression Device [OM.PC] Per Unit Routine VTE Pharmacological Contraindications [AST] Per Unit Routine 10/06/17 21:00 Finasteride [Proscar] 5 mg PO BEDTIME 10/06/17 Breakfast Nothing per Oral After Midnight Diet [DIET] - Plan Plan:: ASSESSMENT AND PLAN RIGHT HIP FRACTURE-stable through the night with plan for surgical repair the fracture later this morning -IV fluids for hydration -Nothing by mouth until after surgery -Pain medication as needed -Surgical repair fracture later this morning by Dr. Goel HYPERTENSION-blood pressures been stable we'll continue to monitor -Continue outpatient medical regimen BPH -Continue outpatient medications MAINTENANCE ISSUES -DVT prophylaxis; SCUDs -GI prophylaxis; not indicated -Brasher catheter; not indicated -Nutrition; regular diet, nothing by mouth after midnight -Nicotine dependence; not required CODE STATUS-full code ADMISSION STATUS-patient will be admitted to inpatient status, expect at least a 2 night hospital stay for evaluation and management of problems as outlined above. At the time of this admission I do not reasonably expected evaluation and management of this problem will require more than a 96 hour hospital stay. DISPOSITION-anticipate discharge to home after the hospital stay. PRIMARY CARE PROVIDER-he receives his health care through the [facility]
[2017-10-06] MEDS: amLODIPine 10 MG Tab PO SCH (10:02)
[2017-10-06] MEDS: Ferrous Sulfate 325 MG Tab PO SCH (10:04)
[2017-10-06] MEDS: DORZOLAMIDE 2% EYELF SCH ×2 (10:04→20:26)
[2017-10-06] MEDS ORDERED: Propofol 200 MG/20 ML SDV ONE (11:33)
[2017-10-06] MEDS ORDERED: fentaNYL 100 MCG/2 ML SDV ONE (11:33)
[2017-10-06] MEDS ORDERED: Midazolam 1 MG/ML 2 ML SDV ONE (11:33)
[2017-10-06] MEDS ORDERED: Lactated Ringers 1,000 ML ONE (13:08)
[2017-10-06] MEDS ORDERED: Dexamethasone 4 MG/ML SDV ONE (13:11)
[2017-10-06] MEDS ORDERED: Ampicillin/Sulbactam Na 3 GM Vial ONE (13:20)
[2017-10-06] MEDS ORDERED: traMADol 50 MG Tab PO PRN (13:37)
[2017-10-06] MEDS ORDERED: diphenhydrAMINE 50 MG/ML SDV IVPUSH PRN (13:37)
[2017-10-06] MEDS ORDERED: Zolpidem 5 MG Tab PO PRN (13:37)
[2017-10-06] MEDS ORDERED: Ketorolac 30 MG/ML SDV IVPUSH PRN (13:37)
[2017-10-06] MEDS ORDERED: Aluminum Hydroxide/Magnesium Hydroxide/Simethicone Susp 30 ML Cup PO PRN (13:37)
[2017-10-06] MEDS ORDERED: Ondansetron 4 MG/2 ML SDV IVPUSH PRN (13:37)
[2017-10-06] MEDS ORDERED: Morphine 2 MG/ML Syringe IVPUSH PRN (13:37)
[2017-10-06] MEDS ORDERED: Naloxone 0.4 MG/ML SDV IVPUSH PRN (13:37)
--- NOTE | 2017-10-06 13:54 | PCM.CONS ---
H&P History of Present Illness - General Date of Service: 10/06/17 Admit Problem/Dx: Admission Diagnosis/Problem Admission Diagnosis/Problem Fracture of hip Source of Information: Patient History Limitations: Reports: No Limitations - History of Present Illness Initial Comments - Free Text/Narative: I the pleasure seeing the patient for consult. Is a pleasant 82-year-old male who fell. He has an injury to his right hip. He has continuous pain in that area. Patient has had no prior injury to that area. He knows struck pain. He notes no other injury present. Right Hip Pain Score (Numeric/FACES): 7 - Related Data Allergies/Adverse Reactions: Allergies Allergy/AdvReac Type Severity Reaction Status Date / Time Sulfa (Sulfonamide Allergy Itching Verified 10/05/17 20:52 Antibiotics) Home Medications: Home Meds Aspirin 325 mg PO DAILY 10/05/17 [History] Cyanocobalamin (Vitamin B-12) [B-12] 1,000 mcg PO DAILY 10/05/17 [History] Dorzolamide HCl [Trusopt] 1 drop EYELF BID 10/05/17 [History] Ferrous Gluconate 324 mg PO DAILY 10/05/17 [History] Finasteride 5 mg PO DAILY 10/05/17 [History] Lovastatin 40 mg PO BEDTIME 10/05/17 [History] [place] 1,000 mg PO BID 10/05/17 [History] Terazosin [Hytrin] 5 mg PO BEDTIME 10/05/17 [History] Timolol Maleate [Timoptic 0.5% Ophth Soln] 1 drop EYEBOTH ACBREAKFAST 10/05/17 [ History] amLODIPine Besylate [Amlodipine Besylate] 10 mg PO DAILY 10/05/17 [History] guaiFENesin [Expectorant] 200 mg PO ASDIRECTED 10/05/17 [History] Brimonidine [Alphagan P 0.15% Ophth Soln] 1 drop EYELF BID 10/06/17 [History] Latanoprost [Xalatan 0.005% Ophth Soln] 1 drop EYEBOTH BEDTIME 10/06/17 [History ] Propylene Glycol/Peg 400 [Systane Ultra 0.4-0.3% Eye Drp] 1 drop EYEBOTH TID PRN 10/06/17 [History] Past Medical History HEENT History: Reports: Cataract, Glaucoma Cardiovascular History: Reports: High Cholesterol, Hypertension Genitourinary History: Reports: Prostate Disorder - Past Surgical History HEENT Surgical History: Reports: Cataract Surgery Social & Family History - Family History Family Medical History: Noncontributory - Tobacco Use Smoking Status *Q: Former Smoker Used Tobacco, but Quit: Yes Month Tobacco Last Used: 1967 Second Hand Smoke Exposure: No - Caffeine Use Caffeine Use: Reports: Coffee - Recreational Drug Use Recreational Drug Use: No H&P Review of Systems - Review of Systems: Review Of Systems: See Below General: Reports: No Symptoms Musculoskeletal: Reports: Joint Pain Skin: Reports: No Symptoms Psychiatric: Reports: Agitation Neurological: Reports: No Symptoms Exam - Exam Exam: See Below - Vital Signs Vital Signs: Last Vital Signs Temp 36.4 C 10/06/17 13:50 Pulse 89 10/06/17 13:50 Resp 12 10/06/17 13:50 BP 108/64 10/06/17 13:50 Pulse Ox 94 L 10/06/17 13:50 Weight: 194 lb 6.387 oz - Exam General: Alert, Oriented Extremities: Normal Capillary Refill, Limited Range of Motion (due to recent fracture), Other (right leg shortening) Peripheral Pulses: 2+: Dorsalis Pedis (L) Skin: Warm, Dry, Intact, Cool - Patient Data Lab Results Last 24 hrs: Laboratory Results - last 24 hr 10/05/17 10/06/17 10/06/17 Range/Units 22:01 05:11 05:11 WBC 10.6 (4.5-11.0) K/uL RBC 4.49 (4.30-5.90) M/uL Hgb 13.2 (12.0-15.0) g/dL Hct 40.0 (40.0-54.0) % MCV 89 (80-98) fL MCH 29 (27-31) pg MCHC 33 (32-36) % Plt Count 219 (150-400) K/uL Neut % (Auto) 84 H (36-66) % Lymph % (Auto) 8 L (24-44) % [place] % (Auto) 7 H (2-6) % Eos % (Auto) 0 L (2-4) % Baso % (Auto) 0 (0-1) % Sodium 140 (140-148) mmol/L Potassium 4.1 (3.6-5.2) mmol/L Chloride 108 (100-108) mmol/L Carbon Dioxide 22 (21-32) mmol/L Anion Gap 9.8 (5.0-14.0) mmol/L BUN 23 H (7-18) mg/dL Creatinine 1.3 (0.8-1.3) mg/dL Est Cr Clr Drug Dosing 42.38 mL/min Estimated GFR (MDRD) 53 L (>60) Glucose 129 H (74-106) mg/dL Calcium 8.4 L (8.5-10.1) mg/dL Urine Color Yellow Urine Appearance Slightly cloudy Urine pH 5.0 (4.5-8.0) Ur Specific [place] 1.020 (1.008-1.030) Urine Protein Negative (NEGATIVE) mg/dL Urine Glucose (UA) Normal (NEGATIVE) mg/dL Urine Ketones 15 H (NEGATIVE) mg/dL Urine Occult Blood Negative (NEGATIVE) Urine Nitrite Negative (NEGAITVE) Urine Bilirubin Small (NEGATIVE) Urine Urobilinogen Normal (NORMAL) mg/dL Ur Leukocyte Esterase Negative (NEGATIVE) Urine RBC 0-5 (0-5) Urine WBC 0-5 (0-5) Ur Epithelial Cells Rare Amorphous Sediment Moderate Urine Bacteria Not seen Urine Mucus Moderate Blood Type Gel Antibody Screen 10/06/17 Range/Units 11:50 WBC (4.5-11.0) K/uL RBC (4.30-5.90) M/uL Hgb (12.0-15.0) g/dL Hct (40.0-54.0) % MCV (80-98) fL MCH (27-31) pg MCHC (32-36) % Plt Count (150-400) K/uL Neut % (Auto) (36-66) % Lymph % (Auto) (24-44) % [place] % (Auto) (2-6) % Eos % (Auto) (2-4) % Baso % (Auto) (0-1) % Sodium (140-148) mmol/L Potassium (3.6-5.2) mmol/L Chloride (100-108) mmol/L Carbon Dioxide (21-32) mmol/L Anion Gap (5.0-14.0) mmol/L BUN (7-18) mg/dL Creatinine (0.8-1.3) mg/dL Est Cr Clr Drug Dosing mL/min Estimated GFR (MDRD) (>60) Glucose (74-106) mg/dL Calcium (8.5-10.1) mg/dL Urine Color Urine Appearance Urine pH (4.5-8.0) Ur Specific [place] (1.008-1.030) Urine Protein (NEGATIVE) mg/dL Urine Glucose (UA) (NEGATIVE) mg/dL Urine Ketones (NEGATIVE) mg/dL Urine Occult Blood (NEGATIVE) Urine Nitrite (NEGAITVE) Urine Bilirubin (NEGATIVE) Urine Urobilinogen (NORMAL) mg/dL Ur Leukocyte Esterase (NEGATIVE) Urine RBC (0-5) Urine WBC (0-5) Ur Epithelial Cells Amorphous Sediment Urine Bacteria Urine Mucus Blood Type O NEGATIVE Gel Antibody Screen Negative Result Diagrams: 10/06/17 05:11 10/06/17 05:11 Consult PN Assessment/Plan Problem List Initiated/Reviewed/Updated: Yes My Orders Last 24 Hours: My Active Orders 10/06/17 07:29 HYDROmorphone [Dilaudid] 1 mg IVPUSH Q1H PRN 10/06/17 11:50 PATIENT RETYPE [BBK] Routine TYPE AND SCREEN [BBK] Routine 10/06/17 13:37 Ambulate [RC] ASDIRECTED Head of Bed Elevation [RC] CONTINUOUS May Shower [RC] ASDIRECTED Neurovascular Check [RC] Q4HR Pulse Oximetry [RC] CONTINUOUS RT Incentive Spirometry [RC] Q1HWA Turn, Cough, Deep Breathe [RC] Q1HWA Up to Chair [RC] TIDMEALS Urinary Catheter Removal [RC] Per Unit Routine Wound Care [RC] Q12H OT Evaluation and Treatment [CONS] Routine PT Evaluation and Treatment [CONS] Routine Respiratory Care Assess and Treatment [CONS] Routine Acetaminophen [Ofirmev] 1,000 mg Premix Bag 1 bag IV NOW Alum Hydrox/Mag Hydrox/Simeth [Mag-Al Plus] 30 ml PO Q4H PRN Ketorolac [Toradol] 15 mg IVPUSH Q8H PRN Morphine 2 mg IVPUSH Q2H PRN Naloxone [Narcan] 0.1 mg IVPUSH ONETIME PRN Ondansetron [Zofran] 8 mg IVPUSH Q4H PRN Zolpidem [Ambien] 5 mg PO BEDTIME PRN diphenhydrAMINE [Benadryl] 25 mg IVPUSH Q4H PRN oxyCODONE 10 mg PO Q4H PRN traMADol [Ultram] 100 mg PO Q6H PRN 10/06/17 13:38 Weight bearing status [OM.PC] Routine 10/06/17 13:39 Hip Min 1V Rt [CR] Stat 10/06/17 13:45 Clindamycin Phosphate [Cleocin] 600 mg Sodium Chloride 0.9% [Normal Saline] 50 ml IV Q6H Convert IV to Saline Lock [OM.PC] PER UNIT ROUTINE Ice Therapy [OM.PC] PER UNIT ROUTINE Oral Care [OM.PC] BID 10/06/17 21:00 Docusate Sodium [Colace] 100 mg PO BID Magnesium Hydroxide [Milk of Magnesia] 30 ml PO BID Sennosides [Senna] 8.6 mg PO BID 10/06/17 Lunch Advance Diet Instructions [DIET] 10/07/17 05:15 CBC WITH AUTO DIFF [HEME] DAILY COMPREHENSIVE METABOLIC PN,CMP [CHEM] DAILY 10/07/17 09:00 Bisacodyl [Dulcolax] 10 mg PO DAILY Sodium Chloride 0.9% [Saline Flush] 10 ml FLUSH DAILY 10/07/17 13:37 Acetaminophen/oxyCODONE [Percocet 325-5 MG] 2 tab PO Q4H PRN Aspirin [Ecotrin] 325 mg PO DAILY 10/07/17 13:45 Oral Care [OM.PC] BID 10/08/17 05:15 CBC WITH AUTO DIFF [HEME] DAILY COMPREHENSIVE METABOLIC PN,CMP [CHEM] DAILY 10/08/17 13:45 Oral Care [OM.PC] BID 10/09/17 05:15 CBC WITH AUTO DIFF [HEME] DAILY COMPREHENSIVE METABOLIC PN,CMP [CHEM] DAILY 10/09/17 13:45 Oral Care [OM.PC] BID 10/10/17 05:15 CBC WITH AUTO DIFF [HEME] DAILY COMPREHENSIVE METABOLIC PN,CMP [CHEM] DAILY 10/10/17 13:45 Oral Care [OM.PC] BID 10/11/17 13:45 Oral Care [OM.PC] BID 10/12/17 13:45 Oral Care [OM.PC] BID 10/13/17 13:45 Oral Care [OM.PC] BID 10/14/17 13:45 Oral Care [OM.PC] BID 10/15/17 13:45 Oral Care [OM.PC] BID Plan: At this time we'll apply did order a CT to determine if we are going to do a pinning versus a hemiarthroplasty. After review of the CT a hemiarthroplasty was decided. We'll plan to do the surgery on 10/06/2017 of a right hemiarthroplasty. Consent was obtained from the family and also the patient. He is to BMP or after midnight. He is to notify us if he has any other issues in the meantime.
[2017-10-06] MEDS ORDERED: Ropivacaine 49.25 ML, Ketorolac 30 MG, EPINEPHrine 0.5 MG, cloNIDine 80 MCG, Sodium Chl... INJECT ONE ×5 (14:00)
[2017-10-06] MEDS ORDERED: Acetaminophen 1,000 MG in Premix Bag 1 BAG IV ONE (14:00)
--- NOTE | 2017-10-06 14:53 | CR ---
Hip Min 1V Rt FINDINGS: The patient is status post hip arthroplasty. The acetabular and femoral components appear w ell-aligned and well-seated. IMPRESSION: Status post hip arthroplasty without evidence for complication.
[2017-10-06] MEDS: oxyCODONE 5 MG Tab PO PRN ×2 (16:41→21:52)
[2017-10-06] MEDS: BRIMONIDINE 0.15% EYELF SCH (20:12)
[2017-10-06] MEDS: Magnesium Hydroxide 400 MG/5 ML Susp 30 ML Cup PO SCH ×2 (20:12→20:17)
[2017-10-06] MEDS: Terazosin 5 MG Cap PO SCH (20:14)
[2017-10-06] MEDS: Docusate Sodium 100 MG Cap PO SCH (20:14)
[2017-10-06] MEDS: Sennosides 8.6 MG Tab PO SCH (20:17)
[2017-10-06] MEDS: Finasteride 5 MG Tab PO SCH (20:17)
[2017-10-06] MEDS: LATANOPROST 0.005% EYEBOTH SCH (20:18)
--- NOTE | 2017-10-06 21:22 | OR ---
DATE OF PROCEDURE: 10/06/2017 PREOPERATIVE DIAGNOSIS: Right hip subcapital femoral neck fracture close. POSTOPERATIVE DIAGNOSIS: Right hip subcapital femoral neck fracture close. PROCEDURE: Right hip hemiarthroplasty. MANUFA[employer]URING PLANT MANAGER: Rachele Mackenzie NP Physician occupational therapist assistant, Rachele Mackenzie NP, played an essential role in assisting in this case, helping to position the patient, retract structures as needed, as well as suturing and cutting sutures as indicated. Her presence improved patients safety and decreased operative time. ANESTHESIA: Spinal plus conscious sedation. FLUID: Lactated Ringer solution. ESTIMATED BLOOD LOSS: 350 mL. COMPLICATIONS: None. SPECIMEN: None. DISCHARGE DISPOSITION: Stable to PACU. INSTRUMENTATION: DePuy [place] size 4 femoral stem with a bipolar 50 mm outside diameter head and +5 neck. INDICATIONS FOR THE PROCEDURE: The patient was seen preoperatively in the hospital room. He had been admitted to the hospital service for right femoral neck fracture. Preoperative imaging confirmed the above-mentioned diagnosis. Risks and benefits of the procedure were explained to the patient and his family and informed consent was obtained. DESCRIPTION OF PROCEDURE: The patient was seen preoperatively in the hospital room, where the operative site was marked. He was brought to the operative suite by Anesthesia staff where spinal sedation was administered plus conscious sedation. He was then placed into a left lateral recumbent position. All extremities found to be well padded. An axillary roll was used. A pegboard was used for stabilization. Pegboard had gel pads around all the pegs. The right lower extremity was then prepped and draped in a sterile manner. Time-out was called identifying the correct patient, correct procedure, the correct site, and antibiotics had begun within appropriate period of time. The incision was made from the level of lesser trochanter approximately 5 cm proximal to the greater trochanter and carried down to the deep fascia. Bleeding during the case was controlled with Bovie electrocautery. I then divided the iliotibial band and then used a [place] for retraction. I then used a Bovie electrocautery starting at the level of the lesser trochanter going around the deep capsule of the gluteus medius and gluteus minimus to the level of the greater trochanter. I then used [place]'s for retraction and then went up the femoral neck and then used sharp Hom[place] for retraction. I externally rotated the hip and then using a reciprocating saw, made my femoral neck cut. I then removed the femoral head using a corkscrew. There was a large piece of the fovea capitis holding this in place, which had to be divided. This measured about a 50 or 51 head. I then removed any extra soft tissue out of the acetabulum and fovea using a deep blade, Bovie electrocautery and rongeurs, and removed some small fragments. I then fit a 50 trial in which I thought was a good fit. We then worked on femoral preparation. I then removed some soft tissue from the base of the greater trochanter and then used a box car checker to remove bone out for lateralization to the greater trochanter into the canal. I then used a lateralizing reamer and then entry reamers up to a 5. We then sequentially broached from a 1 to a 4. I then trialed with a 1.5 neck with a 50 head and then after I dislocated this again, the broach was a little bit loose, so I tried placing a 5, which was too proud and then went back to a 4 and sunk this a little bit deeper. I then used a reciprocating saw to make a better femoral neck cut to custom fit for the broach. We then removed all of our components, copiously irrigated with saline and then inserted a final #4 femoral component with a +5 neck with a 50 mm outside diameter bipolar head. This provided excellent stability throughout range of motion with no shuck. We then copiously irrigated with saline again and then closed the deep gluteus medius and minimus tendons and capsule with two #5 Ethib[place] continuous sutures. We irrigated again and then closed our iliotibial band with #2 STRATAFIX, followed by 3-0 STRATAFIX, followed by Prineo, followed by sterile dressing. The patient was then placed back in his hospital bed in a supine position and taken to the PACU in stable condition. Sumanth Goel DO /[id number]
[2017-10-07] MEDS: oxyCODONE 5 MG Tab PO PRN ×2 (02:49→11:11)
[2017-10-07] MEDS: TIMOLOL MALEATE 0.5% EYEBOTH SCH (07:40)
[2017-10-07] MEDS: Docusate Sodium 100 MG Cap PO SCH ×2 (08:38→20:09)
[2017-10-07] MEDS: BRIMONIDINE 0.15% EYELF SCH ×2 (08:38→20:22)
[2017-10-07] MEDS: Aspirin 325 MG Tab.EC PO SCH (08:39)
[2017-10-07] MEDS: Bisacodyl 5 MG Tab PO SCH (08:39)
[2017-10-07] MEDS: Ferrous Sulfate 325 MG Tab PO SCH (08:40)
[2017-10-07] MEDS: amLODIPine 10 MG Tab PO SCH (08:41)
[2017-10-07] MEDS: Sennosides 8.6 MG Tab PO SCH ×2 (08:41→20:13)
[2017-10-07] MEDS: Magnesium Hydroxide 400 MG/5 ML Susp 30 ML Cup PO SCH ×2 (08:43→20:13)
[2017-10-07] MEDS: DORZOLAMIDE 2% EYELF SCH ×2 (08:44→20:13)
[2017-10-07] MEDS ORDERED: Sodium Chloride 0.9% 10 ML Syringe FLUSH SCH (09:00)
--- NOTE | 2017-10-07 12:39 | PCM.PN ---
- General Info Date of Service: 10/07/17 Subjective Update: Mr. Mathur has been stable since surgery yesterday, current pain control has been adequate. Appetite is been good with no nausea or vomiting, he is not yet had a bowel movement. Has been up ambulating short distances and doing fairly well with transfers. Functional Status: Reports: Pain Controlled, Tolerating Diet, Urinating - Review of Systems General: Denies: Fever, Weakness, Chills Pulmonary: Reports: No Symptoms Cardiovascular: Reports: No Symptoms Gastrointestinal: Reports: No Symptoms Musculoskeletal: Reports: Joint Pain - Patient Data Vitals - Most Recent: Last Vital Signs Temp 98.2 F 10/07/17 11:17 Pulse 94 10/07/17 11:17 Resp 18 10/07/17 11:17 BP 133/76 10/07/17 11:17 Pulse Ox 95 10/07/17 07:10 Weight - Most Recent: 180 lb 1.6 oz I&O - Last 24 Hours: Intake & Output 10/06/17 10/07/17 10/07/17 22:59 06:59 14:59 Intake Total 1586 1119 800 Output Total 750 Balance 1586 369 800 Lab Results Last 24 Hours: Laboratory Results - last 24 hr 10/06/17 10/07/17 10/07/17 Range/Units 11:50 05:15 05:15 WBC 13.1 H (4.5-11.0) K/uL RBC 3.71 L (4.30-5.90) M/uL Hgb 10.9 L D (12.0-15.0) g/dL Hct 33.5 L (40.0-54.0) % MCV 90 (80-98) fL MCH 29 (27-31) pg MCHC 33 (32-36) % Plt Count 185 (150-400) K/uL Neut % (Auto) 85 H (36-66) % Lymph % (Auto) 5 L (24-44) % [place] % (Auto) 10 H (2-6) % Eos % (Auto) 0 L (2-4) % Baso % (Auto) 0 (0-1) % Sodium 139 L (140-148) mmol/L Potassium 4.2 (3.6-5.2) mmol/L Chloride 108 (100-108) mmol/L Carbon Dioxide 24 (21-32) mmol/L Anion Gap 11.2 (5.0-14.0) mmol/L BUN 22 H (7-18) mg/dL Creatinine 1.3 (0.8-1.3) mg/dL Est Cr Clr Drug Dosing 42.54 mL/min Estimated GFR (MDRD) 53 L (>60) Glucose 124 H (74-106) mg/dL Calcium 8.0 L (8.5-10.1) mg/dL Total Bilirubin 0.5 D (0.2-1.0) mg/dL AST 30 (15-37) U/L ALT 19 (12-78) U/L Alkaline Phosphatase 47 (46-116) U/L Total Protein 5.6 L (6.4-8.2) g/dL Albumin 2.7 L (3.4-5.0) g/dL Globulin 2.9 (2.3-3.5) g/dL Albumin/Globulin Ratio 0.9 L (1.2-2.2) Blood Type O NEGATIVE Gel Antibody Screen Negative Med Orders - Current: Current Medications Al Hydroxide/Mg Hydroxide (Mag-Al Plus) 30 ml PO Q4H PRN PRN Reason: Constipation Amlodipine Besylate (Norvasc) 10 mg PO DAILY [facility] Last Admin: 10/07/17 08:41 Dose: 10 mg Aspirin (Ecotrin) 325 mg PO DAILY [facility] Last Admin: 10/07/17 08:39 Dose: 325 mg Bisacodyl (Dulcolax) 10 mg PO DAILY [facility] Last Admin: 10/07/17 08:39 Dose: 10 mg Brimonidine Tartrate (Alphagan P 0.15% Ophth Soln) 0 ml EYELF BID [facility] Last Admin: 10/07/17 08:38 Dose: 1 drop Diphenhydramine HCl (Benadryl) 25 mg IVPUSH Q4H PRN PRN Reason: Itching Docusate Sodium (Colace) 100 mg PO BID [facility] Last Admin: 10/07/17 08:38 Dose: 100 mg Dorzolamide HCl (Trusopt 2% Ophth Soln) 0 ml EYELF BID [facility] Last Admin: 10/07/17 08:44 Dose: 1 drop Ferrous Sulfate (Ferrous Sulfate) 325 mg PO DAILY [facility] Last Admin: 10/07/17 08:40 Dose: 325 mg Finasteride (Proscar) 5 mg PO BEDTIME [facility] Last Admin: 10/06/17 20:17 Dose: 5 mg Hydromorphone HCl (Dilaudid) 1 mg IVPUSH Q1H PRN PRN Reason: Pain Last Admin: 10/06/17 10:04 Dose: 1 mg Ketorolac Tromethamine (Toradol) 15 mg IVPUSH Q8H PRN PRN Reason: Pain Stop: 10/11/17 13:37 Last Admin: 10/06/17 20:04 Dose: 15 mg Latanoprost (Xalatan 0.005% Ophth Soln) 0 ml EYEBOTH BEDTIME [facility] Last Admin: 10/06/17 20:18 Dose: 1 drop Lovastatin (Mevacor) 40 mg PO BEDTIME [facility] Last Admin: 10/06/17 20:18 Dose: 40 mg Magnesium Hydroxide (Milk Of Magnesia) 30 ml PO BID [facility] Last Admin: 10/07/17 08:43 Dose: Not Given Morphine Sulfate (Morphine) 2 mg IVPUSH Q2H PRN PRN Reason: Pain Naloxone HCl (Narcan) 0.1 mg IVPUSH ONETIME PRN PRN Reason: Oversedation Ondansetron HCl (Zofran) 4 mg IV Q4H PRN PRN Reason: Nausea/Vomiting Ondansetron HCl (Zofran) 8 mg IVPUSH Q4H PRN PRN Reason: Nausea/Vomiting Oxycodone HCl (Oxycodone) 10 mg PO Q4H PRN PRN Reason: Pain Stop: 10/07/17 13:37 Last Admin: 10/07/17 11:11 Dose: 10 mg Oxycodone/Acetaminophen (Percocet 325-5 Mg) 2 tab PO Q4H PRN PRN Reason: Pain Polyethylene Glycol (Miralax) 17 gm PO DAILY PRN PRN Reason: Constipation Senna (Senna) 8.6 mg PO BID [facility] Last Admin: 10/07/17 08:41 Dose: 8.6 mg Sodium Chloride (Saline Flush) 10 ml FLUSH ASDIRECTED PRN PRN Reason: Keep Vein Open Terazosin HCl (Hytrin) 5 mg PO BEDTIME [facility] Last Admin: 10/06/17 20:14 Dose: 5 mg Timolol Maleate (Timoptic 0.5% Ophth Soln) 0 ml EYEBOTH ACBREAKFAST [facility] Last Admin: 10/07/17 07:40 Dose: 1 drop Tramadol HCl (Ultram) 100 mg PO Q6H PRN PRN Reason: Pain Last Admin: 10/07/17 06:01 Dose: 50 mg Zolpidem Tartrate (Ambien) 5 mg PO BEDTIME PRN PRN Reason: Sleep Discontinued Medications Acetaminophen (Tylenol) 650 mg PO Q4H PRN PRN Reason: Pain (Mild 1-3)/fever Ampicillin Sodium/Sulbactam Sodium (Unasyn) Confirm Administered Dose 3 gm .ROUTE .STK-MED ONE Stop: 10/06/17 13:21 Ropivacaine 49.25 ml/Ketorolac Tromethamine 30 mg/Epinephrine HCl 0.5 mg/ Clonidine HCl 80 mcg/ Sodium Chloride 48.45 ml 0 ml INJECT ONETIME ONE Stop: 10/06/17 14:01 Last Admin: 10/06/17 13:17 Dose: 100 ml Dexamethasone (Dexamethasone) Confirm Administered Dose 4 mg .ROUTE .STK-MED ONE Stop: 10/06/17 13:12 Fentanyl (Sublimaze) Confirm Administered Dose 100 mcg .ROUTE .STK-MED ONE Stop: 10/06/17 11:34 Finasteride (Proscar) 5 mg PO DAILY [facility] Finasteride (Proscar) 5 mg PO ONETIME ONE Stop: 10/05/17 23:01 Last Admin: 10/05/17 23:05 Dose: 5 mg Hydromorphone HCl (Dilaudid) 0.5 mg IVPUSH ONETIME ONE Stop: 10/05/17 18:03 Last Admin: 10/05/17 18:06 Dose: 0.5 mg Hydromorphone HCl (Dilaudid) Confirm Administered Dose 0.5 mg .ROUTE .STK-MED ONE Stop: 10/05/17 18:04 Last Admin: 10/05/17 18:06 Dose: Not Given Hydromorphone HCl (Dilaudid) 0.5 mg IVPUSH Q2H PRN PRN Reason: Pain Last Admin: 10/06/17 05:50 Dose: 0.5 mg Sodium Chloride (Normal Saline) 1,000 mls @ 125 mls/hr IV ASDIRECTED [facility] Last Admin: 10/06/17 23:46 Dose: 125 mls/hr Clindamycin Phosphate 600 mg/ (Sodium Chloride) 54 mls @ 100 mls/hr IV Q8H [facility] Stop: 10/07/17 02:33 Last Admin: 10/06/17 11:53 Dose: 100 mls/hr Lactated Ringer's (Ringers, Lactated) Confirm Administered Dose 1,000 mls @ as directed .ROUTE .STK-MED ONE Stop: 10/06/17 13:09 Acetaminophen 1,000 mg/ Premix 100 mls @ 400 mls/hr IV NOW ONE Stop: 10/06/17 14:14 Last Admin: 10/06/17 14:08 Dose: 400 mls/hr Clindamycin Phosphate 600 mg/ (Sodium Chloride) 54 mls @ 100 mls/hr IV Q6H [facility] Stop: 10/07/17 06:33 Last Admin: 10/07/17 05:30 Dose: 100 mls/hr Lidocaine HCl (Xylocaine 2% Jelly) Confirm Administered Dose 10 ml .ROUTE .STK- MED ONE Stop: 10/05/17 19:07 Last Admin: 10/05/17 19:22 Dose: Not Given Lidocaine HCl (Xylocaine 2% Jelly) 10 ml MUCMEM ONETIME ONE Stop: 10/05/17 19:23 Last Admin: 10/05/17 19:23 Dose: 10 ml Magnesium Hydroxide (Milk Of Magnesia) 30 ml PO Q12H PRN PRN Reason: Constipation Midazolam HCl (Versed 1 Mg/Ml) Confirm Administered Dose 2 mg .ROUTE .STK-MED ONE Stop: 10/06/17 11:34 Oxycodone HCl (Oxycodone) 5 mg PO Q4H PRN PRN Reason: Pain (moderate 4-6) Propofol (Diprivan 20 Ml) Confirm Administered Dose 200 mg .ROUTE .STK-MED ONE Stop: 10/06/17 11:34 Senna/Docusate Sodium (Senna Plus) 1 tab PO BID PRN PRN Reason: Constipation Sodium Chloride (Saline Flush) 10 ml FLUSH DAILY [facility] - Exam Quality Assessment: DVT Prophylaxis General: Alert, Oriented, Cooperative, Mild Distress Lungs: Clear to Auscultation, Normal Respiratory Effort Cardiovascular: Regular Rate, Regular Rhythm, No Murmurs GI/Abdominal Exam: Soft, Non-Tender, No Organomegaly Extremities: Non-Tender, No Pedal Edema Skin: Warm, Dry - Problem List Review Problem List Initiated/Reviewed/Updated: Yes - My Orders Last 24 Hours: My Active Orders 10/06/17 21:00 Brimonidine [Alphagan P 0.15% Ophth Soln] 0 ml EYELF BID Finasteride [Proscar] 5 mg PO BEDTIME Latanoprost [Xalatan 0.005% Ophth Soln] 0 ml EYEBOTH BEDTIME - Plan Plan:: ASSESSMENT AND PLAN RIGHT HIP FRACTURE-stable since surgical repair of hip fracture yesterday -Saline lock IV -Pain medication as needed -Postop care per Dr. Goel HYPERTENSION-blood pressures been stable we'll continue to monitor -Continue outpatient medical regimen BPH -Continue outpatient medications MAINTENANCE ISSUES -DVT prophylaxis; SCUDs -GI prophylaxis; not indicated -Brasher catheter; not indicated -Nutrition; regular diet, nothing by mouth after midnight -Nicotine dependence; not required CODE STATUS-full code ADMISSION STATUS-patient will be admitted to inpatient status, expect at least a 2 night hospital stay for evaluation and management of problems as outlined above. At the time of this admission I do not reasonably expected evaluation and management of this problem will require more than a 96 hour hospital stay. DISPOSITION-anticipate discharge to home after the hospital stay. PRIMARY CARE PROVIDER-he receives his health care through the [place] [facility]
[2017-10-07] MEDS: Acetaminophen/oxyCODONE 325-5 MG Tab PO PRN ×2 (14:50→20:07)
[2017-10-07] MEDS: LATANOPROST 0.005% EYEBOTH SCH (20:03)
[2017-10-07] MEDS: Terazosin 5 MG Cap PO SCH (20:09)
[2017-10-07] MEDS: Finasteride 5 MG Tab PO SCH (20:13)
[2017-10-08] MEDS: TIMOLOL MALEATE 0.5% EYEBOTH SCH (07:06)
[2017-10-08] MEDS: BRIMONIDINE 0.15% EYELF SCH ×2 (07:09→08:11)
[2017-10-08] MEDS: DORZOLAMIDE 2% EYELF SCH ×2 (07:14→08:12)
[2017-10-08] MEDS: Acetaminophen/oxyCODONE 325-5 MG Tab PO PRN ×2 (07:19→11:14)
[2017-10-08] MEDS: Bisacodyl 5 MG Tab PO SCH (08:13)
[2017-10-08] MEDS: Magnesium Hydroxide 400 MG/5 ML Susp 30 ML Cup PO SCH (08:13)
[2017-10-08] MEDS: Aspirin 325 MG Tab.EC PO SCH (08:13)
[2017-10-08] MEDS: amLODIPine 10 MG Tab PO SCH (08:13)
[2017-10-08] MEDS: Docusate Sodium 100 MG Cap PO SCH (08:13)
[2017-10-08] MEDS: Sennosides 8.6 MG Tab PO SCH (08:13)
[2017-10-08] MEDS: Ferrous Sulfate 325 MG Tab PO SCH (08:13)
--- NOTE | 2017-10-08 09:59 | PCM.PN ---
- General Info Date of Service: 10/08/17 Functional Status: Reports: Pain Controlled - Review of Systems General: Reports: No Symptoms HEENT: Reports: No Symptoms Pulmonary: Reports: No Symptoms Cardiovascular: Reports: No Symptoms Gastrointestinal: Reports: No Symptoms Genitourinary: Reports: No Symptoms Musculoskeletal: Reports: Joint Pain Neurological: Reports: No Symptoms Psychiatric: Reports: No Symptoms - Patient Data Vitals - Most Recent: Last Vital Signs Temp 99.2 F 10/08/17 07:03 Pulse 101 H 10/08/17 07:03 Resp 18 10/08/17 07:03 BP 156/82 H 10/08/17 08:13 Pulse Ox 94 L 10/08/17 07:03 Weight - Most Recent: 393 lb 4.874 oz I&O - Last 24 Hours: Intake & Output 10/07/17 10/08/17 10/08/17 22:59 06:59 14:59 Intake Total 360 Output Total 1000 550 450 Balance -640 -550 -450 Lab Results Last 24 Hours: Laboratory Results - last 24 hr 10/08/17 10/08/17 Range/Units 04:40 04:40 WBC 8.9 (4.5-11.0) K/uL RBC 3.67 L (4.30-5.90) M/uL Hgb 10.9 L (12.0-15.0) g/dL Hct 32.8 L (40.0-54.0) % MCV 89 (80-98) fL MCH 30 (27-31) pg MCHC 33 (32-36) % Plt Count 187 (150-400) K/uL Neut % (Auto) 72 H (36-66) % Lymph % (Auto) 13 L (24-44) % [place] % (Auto) 13 H (2-6) % Eos % (Auto) 1 L (2-4) % Baso % (Auto) 0 (0-1) % Sodium 138 L (140-148) mmol/L Potassium 4.0 (3.6-5.2) mmol/L Chloride 106 (100-108) mmol/L Carbon Dioxide 23 (21-32) mmol/L Anion Gap 13.0 (5.0-14.0) mmol/L BUN 24 H (7-18) mg/dL Creatinine 1.4 H (0.8-1.3) mg/dL Est Cr Clr Drug Dosing 39.50 mL/min Estimated GFR (MDRD) 49 L (>60) Glucose 97 (74-106) mg/dL Calcium 8.2 L (8.5-10.1) mg/dL Total Bilirubin 0.6 (0.2-1.0) mg/dL AST 41 H (15-37) U/L ALT 22 (12-78) U/L Alkaline Phosphatase 52 (46-116) U/L Total Protein 5.7 L (6.4-8.2) g/dL Albumin 2.5 L (3.4-5.0) g/dL Globulin 3.2 (2.3-3.5) g/dL Albumin/Globulin Ratio 0.8 L (1.2-2.2) Med Orders - Current: Current Medications Al Hydroxide/Mg Hydroxide (Mag-Al Plus) 30 ml PO Q4H PRN PRN Reason: Constipation Amlodipine Besylate (Norvasc) 10 mg PO DAILY [facility] Last Admin: 10/08/17 08:13 Dose: 10 mg Aspirin (Ecotrin) 325 mg PO DAILY [facility] Last Admin: 10/08/17 08:13 Dose: 325 mg Bisacodyl (Dulcolax) 10 mg PO DAILY [facility] Last Admin: 10/08/17 08:13 Dose: 10 mg Brimonidine Tartrate (Alphagan P 0.15% Ophth Soln) 0 ml EYELF BID [facility] Last Admin: 10/08/17 08:11 Dose: Not Given Diphenhydramine HCl (Benadryl) 25 mg IVPUSH Q4H PRN PRN Reason: Itching Docusate Sodium (Colace) 100 mg PO BID [facility] Last Admin: 10/08/17 08:13 Dose: 100 mg Dorzolamide HCl (Trusopt 2% Ophth Soln) 0 ml EYELF BID [facility] Last Admin: 10/08/17 08:12 Dose: Not Given Ferrous Sulfate (Ferrous Sulfate) 325 mg PO DAILY [facility] Last Admin: 10/08/17 08:13 Dose: 325 mg Finasteride (Proscar) 5 mg PO BEDTIME [facility] Last Admin: 10/07/17 20:13 Dose: 5 mg Hydromorphone HCl (Dilaudid) 1 mg IVPUSH Q1H PRN PRN Reason: Pain Last Admin: 10/06/17 10:04 Dose: 1 mg Ketorolac Tromethamine (Toradol) 15 mg IVPUSH Q8H PRN PRN Reason: Pain Stop: 10/11/17 13:37 Last Admin: 10/06/17 20:04 Dose: 15 mg Latanoprost (Xalatan 0.005% Ophth Soln) 0 ml EYEBOTH BEDTIME [facility] Last Admin: 10/07/17 20:03 Dose: 1 drop Lovastatin (Mevacor) 40 mg PO BEDTIME [facility] Last Admin: 10/07/17 20:11 Dose: 40 mg Magnesium Hydroxide (Milk Of Magnesia) 30 ml PO BID [facility] Last Admin: 10/08/17 08:13 Dose: 30 ml Morphine Sulfate (Morphine) 2 mg IVPUSH Q2H PRN PRN Reason: Pain Naloxone HCl (Narcan) 0.1 mg IVPUSH ONETIME PRN PRN Reason: Oversedation Ondansetron HCl (Zofran) 4 mg IV Q4H PRN PRN Reason: Nausea/Vomiting Ondansetron HCl (Zofran) 8 mg IVPUSH Q4H PRN PRN Reason: Nausea/Vomiting Oxycodone/Acetaminophen (Percocet 325-5 Mg) 2 tab PO Q4H PRN PRN Reason: Pain Last Admin: 10/08/17 07:19 Dose: 2 tab Polyethylene Glycol (Miralax) 17 gm PO DAILY PRN PRN Reason: Constipation Senna (Senna) 8.6 mg PO BID [facility] Last Admin: 10/08/17 08:13 Dose: 8.6 mg Sodium Chloride (Saline Flush) 10 ml FLUSH ASDIRECTED PRN PRN Reason: Keep Vein Open Terazosin HCl (Hytrin) 5 mg PO BEDTIME [facility] Last Admin: 10/07/17 20:09 Dose: 5 mg Timolol Maleate (Timoptic 0.5% Ophth Soln) 0 ml EYEBOTH ACBREAKFAST [facility] Last Admin: 10/08/17 07:06 Dose: 1 drop Tramadol HCl (Ultram) 100 mg PO Q6H PRN PRN Reason: Pain Last Admin: 10/07/17 06:01 Dose: 50 mg Zolpidem Tartrate (Ambien) 5 mg PO BEDTIME PRN PRN Reason: Sleep Discontinued Medications Acetaminophen (Tylenol) 650 mg PO Q4H PRN PRN Reason: Pain (Mild 1-3)/fever Ampicillin Sodium/Sulbactam Sodium (Unasyn) Confirm Administered Dose 3 gm .ROUTE .STK-MED ONE Stop: 10/06/17 13:21 Ropivacaine 49.25 ml/Ketorolac Tromethamine 30 mg/Epinephrine HCl 0.5 mg/ Clonidine HCl 80 mcg/ Sodium Chloride 48.45 ml 0 ml INJECT ONETIME ONE Stop: 10/06/17 14:01 Last Admin: 10/06/17 13:17 Dose: 100 ml Dexamethasone (Dexamethasone) Confirm Administered Dose 4 mg .ROUTE .STK-MED ONE Stop: 10/06/17 13:12 Fentanyl (Sublimaze) Confirm Administered Dose 100 mcg .ROUTE .STK-MED ONE Stop: 10/06/17 11:34 Finasteride (Proscar) 5 mg PO DAILY [facility] Finasteride (Proscar) 5 mg PO ONETIME ONE Stop: 10/05/17 23:01 Last Admin: 10/05/17 23:05 Dose: 5 mg Hydromorphone HCl (Dilaudid) 0.5 mg IVPUSH ONETIME ONE Stop: 10/05/17 18:03 Last Admin: 10/05/17 18:06 Dose: 0.5 mg Hydromorphone HCl (Dilaudid) Confirm Administered Dose 0.5 mg .ROUTE .STK-MED ONE Stop: 10/05/17 18:04 Last Admin: 10/05/17 18:06 Dose: Not Given Hydromorphone HCl (Dilaudid) 0.5 mg IVPUSH Q2H PRN PRN Reason: Pain Last Admin: 10/06/17 05:50 Dose: 0.5 mg Sodium Chloride (Normal Saline) 1,000 mls @ 125 mls/hr IV ASDIRECTED [facility] Last Admin: 10/06/17 23:46 Dose: 125 mls/hr Clindamycin Phosphate 600 mg/ (Sodium Chloride) 54 mls @ 100 mls/hr IV Q8H [facility] Stop: 10/07/17 02:33 Last Admin: 10/06/17 11:53 Dose: 100 mls/hr Lactated Ringer's (Ringers, Lactated) Confirm Administered Dose 1,000 mls @ as directed .ROUTE .STK-MED ONE Stop: 10/06/17 13:09 Acetaminophen 1,000 mg/ Premix 100 mls @ 400 mls/hr IV NOW ONE Stop: 10/06/17 14:14 Last Admin: 10/06/17 14:08 Dose: 400 mls/hr Clindamycin Phosphate 600 mg/ (Sodium Chloride) 54 mls @ 100 mls/hr IV Q6H [facility] Stop: 10/07/17 06:33 Last Admin: 10/07/17 05:30 Dose: 100 mls/hr Lidocaine HCl (Xylocaine 2% Jelly) Confirm Administered Dose 10 ml .ROUTE .STK- MED ONE Stop: 10/05/17 19:07 Last Admin: 10/05/17 19:22 Dose: Not Given Lidocaine HCl (Xylocaine 2% Jelly) 10 ml MUCMEM ONETIME ONE Stop: 10/05/17 19:23 Last Admin: 10/05/17 19:23 Dose: 10 ml Magnesium Hydroxide (Milk Of Magnesia) 30 ml PO Q12H PRN PRN Reason: Constipation Midazolam HCl (Versed 1 Mg/Ml) Confirm Administered Dose 2 mg .ROUTE .STK-MED ONE Stop: 10/06/17 11:34 Oxycodone HCl (Oxycodone) 5 mg PO Q4H PRN PRN Reason: Pain (moderate 4-6) Oxycodone HCl (Oxycodone) 10 mg PO Q4H PRN PRN Reason: Pain Stop: 10/07/17 13:37 Last Admin: 10/07/17 11:11 Dose: 10 mg Propofol (Diprivan 20 Ml) Confirm Administered Dose 200 mg .ROUTE .STK-MED ONE Stop: 10/06/17 11:34 Senna/Docusate Sodium (Senna Plus) 1 tab PO BID PRN PRN Reason: Constipation Sodium Chloride (Saline Flush) 10 ml FLUSH DAILY [facility] - Exam General: Alert, Oriented HEENT: Pupils Equal, Pupils Reactive, EOMI, Mucous Membr. Moist/[place] Neck: Supple, Trachea Midline Lungs: Normal Respiratory Effort Extremities: Normal Inspection, No Pedal Edema, Normal Capillary Refill Peripheral Pulses: 2+: Dorsalis Pedis (L), Dorsalis Pedis (R) Skin: Warm, Dry, Intact Wound/Incisions: Healing Well, Dressing Dry and Intact, No Drainage Neurological: No New Focal Deficit Psy/Mental Status: Alert, Normal Affect, Normal Mood Physical Findings Comments:: Good ankle ROM, good knee ROM. Pain well controlled. walked 150'. has done steps. - Problem List Review Problem List Initiated/Reviewed/Updated: Yes - Plan Plan:: A: POD 2 R hip hemiarthroplasty P: PT/OT/ wbat. pain control. f/u 2 weeks in clinic
--- NOTE | 2017-10-08 11:45 | PCM.DCSUM1 ---
Discharge Summary - Hospital Course Brief History: Mr. Mathur is an 82-year-old gentleman who was admitted through the emergency department after he fell at home experiencing a right hip fracture. - Discharge Data Discharge Date: 10/08/17 Discharge Disposition: Home, W [facility] Health Agency 06 Condition: Fair - Discharge Diagnosis/Problem(s) (1) Fracture of femoral neck, right, closed SNOMED Code(s): 292554919 ICD Code: S72.001A - FRACTURE OF UNSP PART OF NECK OF RIGHT FEMUR, INIT Status: Acute Current Visit: Yes Qualifiers: Encounter type: initial encounter Qualified Code(s): S72.001A - Fracture of unspecified part of neck of right femur, initial encounter for closed fracture (2) Prostate disorder SNOMED Code(s): 25091374 ICD Code: N42.9 - DISORDER OF PROSTATE, UNSPECIFIED Status: Chronic Current Visit: No (3) HTN (hypertension) SNOMED Code(s): 37811596 ICD Code: I10 - ESSENTIAL (PRIMARY) HYPERTENSION Status: Chronic Current Visit: No - Patient Summary/Data Consults: Consultations 10/05/17 20:49 Consult to Physician [CONS] Routine Consulting Provider: Sumanth Goel Call Completed to Consulting Physician: Yes Reason for Consult: Right hip fracture 10/06/17 13:37 OT Evaluation and Treatment [CONS] Routine Please Evaluate and Treat. OT Reason for Consult: Strengthening This query below is only for informational purposes and is not editable. Admission Diagnosis/Problem: Fracture of hip PT Evaluation and Treatment [CONS] Routine Please Evaluate and Treat. PT Reason for Consult: Strengthening This query below is only for informational purposes and is not editable. Admission Diagnosis/Problem: Fracture of hip Respiratory Care Assess and Treatment [CONS] Routine Comment: Physician Instructions: Post-Op Pneumonia Prevention Hospital Course: Mr. Mathur is an 82-year-old gentleman who is admitted through the emergency department for further management of a right hip fracture. He slipped and fell on his deck on the day of admission and noted immediate onset of pain in his right hip. On evaluation in the emergency department x-ray documents fracture of the right hip. He is otherwise fairly healthy, denies significant cardiac or respiratory disease. He's had no recent symptoms of chest pain or pressure, shortness of breath or neurologic symptoms. He himself has never had general anesthesia and denies any family history of adverse reaction to general anesthetic. He has had no personal history of deep vein thrombosis or pulmonary embolism. He was admitted to the hospital, given IV fluids for hydration as well as pain medication as needed. On the morning after admission he was seen and evaluated by Dr. Anam Goel for an orthopedic consult and was taken to the operating room later in the morning for surgical repair of the right hip fracture with a right hemiarthroplasty. He did exceptionally well during the postoperative course and by the day of discharge was walking in the hallways and doing well with stairs. Will remain on aspirin daily for DVT prophylaxis. Home care will be arranged for follow-up at home in addition to home physical therapy and occupational therapy. Activity will be as tolerated and he will resume his usual diet. Follow-up appointment will be scheduled with Dr. Goel in 2 weeks. - Patient Instructions Diet: Usual Diet as Tolerated Activity: As Tolerated Driving: Do Not Drive Wound/Incision Care: Keep Operative Site/Wound Site Clean and Dry Notify Provider of: Fever, Increased Pain, Swelling and Redness, Drainage - Discharge Plan Prescriptions/Med Rec: Acetaminophen/oxyCODONE [Percocet 325-5 MG] 1 - 2 tab PO Q4H PRN #40 tablet PRN Reason: Pain Aspirin [Ecotrin] 325 mg PO DAILY #30 tab.ec Polyethylene Glycol 3350 [Miralax] 17 gm PO DAILY #30 powd.pack Home Medications: Home Meds Aspirin 325 mg PO DAILY 10/05/17 [History] Cyanocobalamin (Vitamin B-12) [B-12] 1,000 mcg PO DAILY 10/05/17 [History] Dorzolamide HCl [Trusopt] 1 drop EYELF BID 10/05/17 [History] Ferrous Gluconate 324 mg PO DAILY 10/05/17 [History] Finasteride 5 mg PO DAILY 10/05/17 [History] Lovastatin 40 mg PO BEDTIME 10/05/17 [History] Saw [place] 1,000 mg PO BID 10/05/17 [History] Terazosin [Hytrin] 5 mg PO BEDTIME 10/05/17 [History] Timolol Maleate [Timoptic 0.5% Ophth Soln] 1 drop EYEBOTH ACBREAKFAST 10/05/17 [ History] amLODIPine Besylate [Amlodipine Besylate] 10 mg PO DAILY 10/05/17 [History] guaiFENesin [Expectorant] 200 mg PO ASDIRECTED 10/05/17 [History] Brimonidine [Alphagan P 0.15% Ophth Soln] 1 drop EYELF BID 10/06/17 [History] Latanoprost [Xalatan 0.005% Ophth Soln] 1 drop EYEBOTH BEDTIME 10/06/17 [History ] Propylene Glycol/Peg 400 [Systane Ultra 0.4-0.3% Eye Drp] 1 drop EYEBOTH TID PRN 10/06/17 [History] Acetaminophen/oxyCODONE [Percocet 325-5 MG] 1 - 2 tab PO Q4H PRN #40 tablet [Rx] Aspirin [Ecotrin] 325 mg PO DAILY #30 tab.ec 10/08/17 [Rx] Polyethylene Glycol 3350 [Miralax] 17 gm PO DAILY #30 powd.pack 10/08/17 [Rx] Referrals: Sumanth Goel DO [Physician] - 10/21/17 10:15 am (Located in lower level of hospital) - Discharge Summary/Plan Comment DC Time >30 min.: No (25 minutes of time was spent preparing discharge) - Patient Data Vitals - Most Recent: Last Vital Signs Temp 99.1 F 10/08/17 10:00 Pulse 92 10/08/17 10:00 Resp 18 10/08/17 10:00 BP 151/69 H 10/08/17 10:00 Pulse Ox 94 L 10/08/17 10:00 Weight - Most Recent: 393 lb 4.874 oz I&O - Last 24 hours: Intake & Output 10/07/17 10/08/17 10/08/17 22:59 06:59 14:59 Intake Total 360 240 Output Total 1000 550 450 Balance -640 -550 -210 Lab Results - Last 24 hrs: Laboratory Results - last 24 hr 10/08/17 10/08/17 Range/Units 04:40 04:40 WBC 8.9 (4.5-11.0) K/uL RBC 3.67 L (4.30-5.90) M/uL Hgb 10.9 L (12.0-15.0) g/dL Hct 32.8 L (40.0-54.0) % MCV 89 (80-98) fL MCH 30 (27-31) pg MCHC 33 (32-36) % Plt Count 187 (150-400) K/uL Neut % (Auto) 72 H (36-66) % Lymph % (Auto) 13 L (24-44) % [place] % (Auto) 13 H (2-6) % Eos % (Auto) 1 L (2-4) % Baso % (Auto) 0 (0-1) % Sodium 138 L (140-148) mmol/L Potassium 4.0 (3.6-5.2) mmol/L Chloride 106 (100-108) mmol/L Carbon Dioxide 23 (21-32) mmol/L Anion Gap 13.0 (5.0-14.0) mmol/L BUN 24 H (7-18) mg/dL Creatinine 1.4 H (0.8-1.3) mg/dL Est Cr Clr Drug Dosing 39.50 mL/min Estimated GFR (MDRD) 49 L (>60) Glucose 97 (74-106) mg/dL Calcium 8.2 L (8.5-10.1) mg/dL Total Bilirubin 0.6 (0.2-1.0) mg/dL AST 41 H (15-37) U/L ALT 22 (12-78) U/L Alkaline Phosphatase 52 (46-116) U/L Total Protein 5.7 L (6.4-8.2) g/dL Albumin 2.5 L (3.4-5.0) g/dL Globulin 3.2 (2.3-3.5) g/dL Albumin/Globulin Ratio 0.8 L (1.2-2.2) Med Orders - Current: Current Medications Al Hydroxide/Mg Hydroxide (Mag-Al Plus) 30 ml PO Q4H PRN PRN Reason: Constipation Amlodipine Besylate (Norvasc) 10 mg PO DAILY [facility] Last Admin: 10/08/17 08:13 Dose: 10 mg Aspirin (Ecotrin) 325 mg PO DAILY [facility] Last Admin: 10/08/17 08:13 Dose: 325 mg Bisacodyl (Dulcolax) 10 mg PO DAILY [facility] Last Admin: 10/08/17 08:13 Dose: 10 mg Brimonidine Tartrate (Alphagan P 0.15% Ophth Soln) 0 ml EYELF BID [facility] Last Admin: 10/08/17 08:11 Dose: Not Given Diphenhydramine HCl (Benadryl) 25 mg IVPUSH Q4H PRN PRN Reason: Itching Docusate Sodium (Colace) 100 mg PO BID [facility] Last Admin: 10/08/17 08:13 Dose: 100 mg Dorzolamide HCl (Trusopt 2% Ophth Soln) 0 ml EYELF BID [facility] Last Admin: 10/08/17 08:12 Dose: Not Given Ferrous Sulfate (Ferrous Sulfate) 325 mg PO DAILY [facility] Last Admin: 10/08/17 08:13 Dose: 325 mg Finasteride (Proscar) 5 mg PO BEDTIME [facility] Last Admin: 10/07/17 20:13 Dose: 5 mg Hydromorphone HCl (Dilaudid) 1 mg IVPUSH Q1H PRN PRN Reason: Pain Last Admin: 10/06/17 10:04 Dose: 1 mg Ketorolac Tromethamine (Toradol) 15 mg IVPUSH Q8H PRN PRN Reason: Pain Stop: 10/11/17 13:37 Last Admin: 10/06/17 20:04 Dose: 15 mg Latanoprost (Xalatan 0.005% Ophth Soln) 0 ml EYEBOTH BEDTIME [facility] Last Admin: 10/07/17 20:03 Dose: 1 drop Lovastatin (Mevacor) 40 mg PO BEDTIME [facility] Last Admin: 10/07/17 20:11 Dose: 40 mg Magnesium Hydroxide (Milk Of Magnesia) 30 ml PO BID [facility] Last Admin: 10/08/17 08:13 Dose: 30 ml Morphine Sulfate (Morphine) 2 mg IVPUSH Q2H PRN PRN Reason: Pain Naloxone HCl (Narcan) 0.1 mg IVPUSH ONETIME PRN PRN Reason: Oversedation Ondansetron HCl (Zofran) 4 mg IV Q4H PRN PRN Reason: Nausea/Vomiting Ondansetron HCl (Zofran) 8 mg IVPUSH Q4H PRN PRN Reason: Nausea/Vomiting Oxycodone/Acetaminophen (Percocet 325-5 Mg) 2 tab PO Q4H PRN PRN Reason: Pain Last Admin: 10/08/17 11:14 Dose: 2 tab Polyethylene Glycol (Miralax) 17 gm PO DAILY PRN PRN Reason: Constipation Senna (Senna) 8.6 mg PO BID [facility] Last Admin: 10/08/17 08:13 Dose: 8.6 mg Sodium Chloride (Saline Flush) 10 ml FLUSH ASDIRECTED PRN PRN Reason: Keep Vein Open Terazosin HCl (Hytrin) 5 mg PO BEDTIME [facility] Last Admin: 10/07/17 20:09 Dose: 5 mg Timolol Maleate (Timoptic 0.5% Ophth Soln) 0 ml EYEBOTH ACBREAKFAST [facility] Last Admin: 10/08/17 07:06 Dose: 1 drop Tramadol HCl (Ultram) 100 mg PO Q6H PRN PRN Reason: Pain Last Admin: 10/07/17 06:01 Dose: 50 mg Zolpidem Tartrate (Ambien) 5 mg PO BEDTIME PRN PRN Reason: Sleep Discontinued Medications Acetaminophen (Tylenol) 650 mg PO Q4H PRN PRN Reason: Pain (Mild 1-3)/fever Ampicillin Sodium/Sulbactam Sodium (Unasyn) Confirm Administered Dose 3 gm .ROUTE .STK-MED ONE Stop: 10/06/17 13:21 Ropivacaine 49.25 ml/Ketorolac Tromethamine 30 mg/Epinephrine HCl 0.5 mg/ Clonidine HCl 80 mcg/ Sodium Chloride 48.45 ml 0 ml INJECT ONETIME ONE Stop: 10/06/17 14:01 Last Admin: 10/06/17 13:17 Dose: 100 ml Dexamethasone (Dexamethasone) Confirm Administered Dose 4 mg .ROUTE .STK-MED ONE Stop: 10/06/17 13:12 Fentanyl (Sublimaze) Confirm Administered Dose 100 mcg .ROUTE .STK-MED ONE Stop: 10/06/17 11:34 Finasteride (Proscar) 5 mg PO DAILY [facility] Finasteride (Proscar) 5 mg PO ONETIME ONE Stop: 10/05/17 23:01 Last Admin: 10/05/17 23:05 Dose: 5 mg Hydromorphone HCl (Dilaudid) 0.5 mg IVPUSH ONETIME ONE Stop: 10/05/17 18:03 Last Admin: 10/05/17 18:06 Dose: 0.5 mg Hydromorphone HCl (Dilaudid) Confirm Administered Dose 0.5 mg .ROUTE .STK-MED ONE Stop: 10/05/17 18:04 Last Admin: 10/05/17 18:06 Dose: Not Given Hydromorphone HCl (Dilaudid) 0.5 mg IVPUSH Q2H PRN PRN Reason: Pain Last Admin: 10/06/17 05:50 Dose: 0.5 mg Sodium Chloride (Normal Saline) 1,000 mls @ 125 mls/hr IV ASDIRECTED [facility] Last Admin: 10/06/17 23:46 Dose: 125 mls/hr Clindamycin Phosphate 600 mg/ (Sodium Chloride) 54 mls @ 100 mls/hr IV Q8H [facility] Stop: 10/07/17 02:33 Last Admin: 10/06/17 11:53 Dose: 100 mls/hr Lactated Ringer's (Ringers, Lactated) Confirm Administered Dose 1,000 mls @ as directed .ROUTE .STK-MED ONE Stop: 10/06/17 13:09 Acetaminophen 1,000 mg/ Premix 100 mls @ 400 mls/hr IV NOW ONE Stop: 10/06/17 14:14 Last Admin: 10/06/17 14:08 Dose: 400 mls/hr Clindamycin Phosphate 600 mg/ (Sodium Chloride) 54 mls @ 100 mls/hr IV Q6H [facility] Stop: 10/07/17 06:33 Last Admin: 10/07/17 05:30 Dose: 100 mls/hr Lidocaine HCl (Xylocaine 2% Jelly) Confirm Administered Dose 10 ml .ROUTE .STK- MED ONE Stop: 10/05/17 19:07 Last Admin: 10/05/17 19:22 Dose: Not Given Lidocaine HCl (Xylocaine 2% Jelly) 10 ml MUCMEM ONETIME ONE Stop: 10/05/17 19:23 Last Admin: 10/05/17 19:23 Dose: 10 ml Magnesium Hydroxide (Milk Of Magnesia) 30 ml PO Q12H PRN PRN Reason: Constipation Midazolam HCl (Versed 1 Mg/Ml) Confirm Administered Dose 2 mg .ROUTE .STK-MED ONE Stop: 10/06/17 11:34 Oxycodone HCl (Oxycodone) 5 mg PO Q4H PRN PRN Reason: Pain (moderate 4-6) Oxycodone HCl (Oxycodone) 10 mg PO Q4H PRN PRN Reason: Pain Stop: 10/07/17 13:37 Last Admin: 10/07/17 11:11 Dose: 10 mg Propofol (Diprivan 20 Ml) Confirm Administered Dose 200 mg .ROUTE .STK-MED ONE Stop: 10/06/17 11:34 Senna/Docusate Sodium (Senna Plus) 1 tab PO BID PRN PRN Reason: Constipation Sodium Chloride (Saline Flush) 10 ml FLUSH DAILY [facility] - Exam General: Reports: Alert, Oriented, Cooperative, Mild Distress Lungs: Reports: Clear to Auscultation, Normal Respiratory Effort Cardiovascular: Reports: Regular Rate, Regular Rhythm, No Murmurs GI/Abdominal Exam: Soft, Non-Tender, No Organomegaly, No Distention Extremities: Non-Tender, No Pedal Edema Skin: Reports: Warm, Dry Wound/Incisions: Reports: Healing Well, No Drainage. Denies: Drainage, Erythema *Q Meaningful Use (DIS) - VTE *Q VTE Criteria *Q: VTE Pharmacological Contraindications *Q: Patient Scheduled Surgery - Stroke *Q Stroke Criteria *Q: - AMI *Q AMI Criteria *Q:
== END 2017-10-08 13:20 | disposition home health service (06) | DRG 470 ==
LOC: JP.ED 17:09 → JP.MS 19:55 → JP.SDSSCHI 10-06 08:34 → JP.MS 10-06 08:40 → JP.SDSSCHI 10-06 12:13 → JP.MS 10-06 12:17
PROVIDERS: ADMIT Hospitalist; ATTEND Hospitalist
PROC: 0SRR0JZ Replacement of Right Hip Joint, Femoral Surface with Synthetic Substitute, Open Approach (ICD-10-PCS; principal; 2017-10-06)
DX: S72.031A Displaced midcervical fracture of right femur, initial encounter for closed fracture (principal); I10 Essential (primary) hypertension; S50.01XA Contusion of right elbow, initial encounter; W01.0XXA Fall on same level from slipping, tripping and stumbling without subsequent striking against object, initial encounter; Y92.008 Other place in unspecified non-institutional (private) residence as the place of occurrence of the external cause; Z87.891 Personal history of nicotine dependence; M25.551 Pain in right hip; H40.9 Unspecified glaucoma; N42.9 Disorder of prostate, unspecified; Z79.82 Long term (current) use of aspirin; Z88.2 Allergy status to sulfonamides
CPT/HCPCS: 36415; 71045 ×2; 73070 ×2; 73502 ×2; 73700; 80053; 85025; 96374; 99284; 99285; J1170; 73501-26-RT; 73501-RT; 80048; 81001; 86850; 86900; 86901; 93005; 94762; 97116-GP; 97161-GP; 97165-GO; 97530-GP; 97535-GP; A9270-GY; J0131; J0171; J0295; J0735; J1100; J1885; J2250; J2704; J2795; J3010; J7040; J7050; J7120; S0077

== ENCOUNTER 2025-04-16 17:02 | Emergency (ER) | payer OTHER, MEDICARE ==
[2025-04-16] MEDS: Bacitracin Oint 1 GM U/D Packet TOP ONE (20:03)
[2025-04-16] MEDS: Lidocaine 1% with EPINEPHrine 1:100,000 50 ML MDV SUBCUT STA (20:03)
== END 2025-04-16 20:26 | disposition home or self-care (01) ==
LOC: JP.ED 17:02
DX: S51.011A Laceration without foreign body of right elbow, initial encounter (principal); I10 Essential (primary) hypertension; E78.00 Pure hypercholesterolemia, unspecified; Z88.2 Allergy status to sulfonamides; Z79.82 Long term (current) use of aspirin; Z79.899 Other long term (current) drug therapy; W19.XXXA Unspecified fall, initial encounter; Y92.009 Unspecified place in unspecified non-institutional (private) residence as the place of occurrence of the external cause
CPT/HCPCS: 12002; 99282

== ENCOUNTER 2025-04-19 17:35 | Emergency (ER) | payer OTHER, MEDICARE ==
[2025-04-19] MEDS: Bacitracin Oint 1 GM U/D Packet TOP ONE (18:33)
== END 2025-04-19 18:37 | disposition home or self-care (01) ==
LOC: JP.ED 17:35
DX: Z48.817 Encounter for surgical aftercare following surgery on the skin and subcutaneous tissue (principal); E78.00 Pure hypercholesterolemia, unspecified; I10 Essential (primary) hypertension; Z88.2 Allergy status to sulfonamides; Z79.899 Other long term (current) drug therapy; Z79.82 Long term (current) use of aspirin
CPT/HCPCS: 99282

== ENCOUNTER 2025-06-07 15:35 | Emergency (ER) | payer OTHER, MEDICARE ==
[2025-06-07 17:21] LABS: BASOPHILS ABSOLUTE AUTO 0.01 K/uL (0.00-0.10); BASOPHILS PERCENT AUTO 0.1 % (0.1-1.3); EOSINOPHILS ABSOLUTE AUTO 0.01 K/uL (0.00-0.40); EOSINOPHILS PERCENT AUTO 0.1 % (0.0-5.4); IMMATURE GRAN ABSOLUTE AUTO 0.07 K/uL (0.00-0.23); IMMATURE GRAN PERCENT AUTO 0.9 % (0.0-0.7); LYMPHOCYTES ABSOLUTE AUTO 0.40 K/uL (0.8-3.3); LYMPHOCYTES PERCENT AUTO 5.2 % (11.4-47.7); MONOCYTES ABSOLUTE AUTO 0.40 K/uL (0.20-0.90); MONOCYTES PERCENT AUTO 5.2 % (3.3-12.6); NEUTROPHILS ABSOLUTE AUTO 6.83 K/uL (1.0-7.6); NEUTROPHILS PERCENT AUTO 88.5 % (40.0-78.1); PLATELET COUNT,PLT 235 K/uL (130-375); RED BLOOD CELL COUNT 3.64 M/uL (4.14-5.76); WHITE BLOOD CELL COUNT,WBC 7.7 K/uL (3.2-11.0)
[2025-06-07 17:42] LABS: A/G RATIO 1.3 (1.2-2.2); ALANINE AMINOTRANSFERASE,ALT 24 U/L (12-78); ASPARTATE AMNIOTRANSFERASE,AST 18 U/L (15-37); BILIRUBIN TOTAL 0.3 mg/dL (0.2-1.0); BLOOD UREA NITROGEN,BUN 31 mg/dL (7-18); CARBON DIOXIDE,CO2 26 mmol/L (21-32); CHLORIDE,CL 107 mmol/L (100-108); CREATININE 1.6 mg/dL (0.8-1.3); EST CRCL DRUG DOSING (CG) 30.28 mL/min; ESTIMATED GFR 41 mL/min (>60); GLUCOSE RANDOM 127 mg/dL (74-106); POTASSIUM,K 4.4 mmol/L (3.6-5.2); PROTEIN TOTAL,TP 6.7 g/dL (6.4-8.2); SODIUM,NA 139 mmol/L (140-148)
[2025-06-07] MEDS: LORazepam 2 MG/ML SDV IVPUSH ONE (18:04)
== END 2025-06-07 22:56 | disposition other institution (70) ==
LOC: JP.ED 15:35
DX: S72.012A Unspecified intracapsular fracture of left femur, initial encounter for closed fracture (principal); I10 Essential (primary) hypertension; E78.00 Pure hypercholesterolemia, unspecified; M19.90 Unspecified osteoarthritis, unspecified site; Z88.2 Allergy status to sulfonamides; Z79.899 Other long term (current) drug therapy; W01.0XXA Fall on same level from slipping, tripping and stumbling without subsequent striking against object, initial encounter
CPT/HCPCS: 36415; 71045; 73502; 80053; 85025; 86850; 86900; 86901; 93005; 96374; 96375; 96376; 99285; J1171; J2060; 93010; 99284

== ENCOUNTER 2025-06-14 13:34 | Inpatient (IN) | payer MEDICARE, OTHER ==
[2025-06-14] MEDS ORDERED: Ondansetron 4 MG Tab.DIS PO PRN (14:58)
[2025-06-14] MEDS ORDERED: Magnesium Hydroxide 400 MG/5 ML Susp 30 ML Cup PO PRN (14:58)
[2025-06-14] MEDS: Timolol Maleate 0.5% Ophth Soln 5 ML Bottle EYELF SCH (20:05)
[2025-06-14] MEDS ORDERED: Non-Formulary Medication 1 Each (Lovastatin [Lovastatin] 40 MG Tablet) PO SCH (21:00)
[2025-06-15] MEDS: Cholecalciferol (Vitamin D3) 25 MCG Tab PO SCH (08:04)
[2025-06-15] MEDS: Sennosides/Docusate Sodium 50-8.6 MG Tab PO SCH (08:04)
[2025-06-15] MEDS: Cyanocobalamin (Vitamin B12) 1,000 MCG Tab PO SCH (08:04)
[2025-06-15] MEDS: Aspirin 325 MG Tab.EC PO SCH (08:04)
[2025-06-15] MEDS ORDERED: Non-Formulary Medication 1 Each (Amlodipine Besylate [Amlodipine Besylate] 10 MG Tablet) PO SCH (09:00)
[2025-06-15] MEDS ORDERED: Non-Formulary Medication 1 Each (Prednisone [Prednisone] 2.5 MG Tablet) PO SCH (09:00)
[2025-06-16] MEDS ORDERED: Sennosides/Docusate Sodium 50-8.6 MG Tab PO PRN (09:45)
[2025-06-17] MEDS ORDERED: Hypromellose 0.3% Ophth Soln 15 ML Bottle EYEBOTH PRN (10:47)
[2025-06-18 06:05] LABS: PLATELET COUNT,PLT 420.0 K/uL (130-375); RED BLOOD CELL COUNT 2.59 M/uL (4.14-5.76); WHITE BLOOD CELL COUNT,WBC 9.2 K/uL (3.2-11.0)
== END 2025-06-23 13:45 | disposition home or self-care (01) | DRG 560 ==
LOC: JP.MS 13:34
PROVIDERS: ADMIT Internal Medicine; ATTEND Hospitalist
DX: Z47.1 Aftercare following joint replacement surgery (principal); D62 Acute posthemorrhagic anemia; H26.9 Unspecified cataract; E78.00 Pure hypercholesterolemia, unspecified; H54.7 Unspecified visual loss; I10 Essential (primary) hypertension; Z96.619 Presence of unspecified artificial shoulder joint; M06.9 Rheumatoid arthritis, unspecified; Z96.642 Presence of left artificial hip joint; H40.9 Unspecified glaucoma; S72.002D Fracture of unspecified part of neck of left femur, subsequent encounter for closed fracture with routine healing; Z88.2 Allergy status to sulfonamides; Z79.899 Other long term (current) drug therapy; Z79.1 Long term (current) use of non-steroidal anti-inflammatories (NSAID); Z79.01 Long term (current) use of anticoagulants; Z79.82 Long term (current) use of aspirin; Z79.891 Long term (current) use of opiate analgesic; Z87.81 Personal history of (healed) traumatic fracture; Z98.49 Cataract extraction status, unspecified eye
CPT/HCPCS: 36415; 85018; 85027; 97110-GO; 97110-GP; 97116-GP; 97161-GP; 97165-GO; 97530-GP; 97535-GO; 99305; 99308; 99315; A9270-GY; J7512